=== PATIENT | female | born 1950 | race Caucasian/White ===

== ENCOUNTER → 2016-10-28 | Outpatient (REF) | payer MEDICARE, OTHER ==
[2016-10-28 11:42] LABS: ALBUMIN 3.9 GM/DL (3.2-5.2); ALBUMIN/GLOBULIN RATIO 1.44 (1.00-1.93); ALKALINE PHOSPHATASE 64 U/L (45-117); ALT/SGPT 36 U/L (12-78); ANION GAP 7 MEQ/L (8-16); AST/SGOT 19 U/L (15-37); BILIRUBIN,TOTAL 0.4 MG/DL (0.2-1.0); BLOOD UREA NITROGEN 19 MG/DL (7-18); CALCIUM LEVEL 9.3 MG/DL (8.8-10.2); CARBON DIOXIDE LEVEL 28 MEQ/L (21-32); CHLORIDE LEVEL 107 MEQ/L (98-107); CHOLESTEROL LEVEL 164 MG/DL (<200); CREATININE FOR GFR 0.87 MG/DL (0.55-1.02); FREE T4 0.94 NG/DL (0.76-1.46); GLOMERULAR FILTRATION RATE > 60.0 (>45); GLUCOSE, FASTING 98 MG/DL (80-110); POTASSIUM SERUM 4.5 MEQ/L (3.5-5.1); SODIUM LEVEL 142 MEQ/L (136-145); TOTAL PROTEIN 6.6 GM/DL (6.4-8.2); TRIGLYCERIDES LEVEL 75 MG/DL (<150)
== END ==
LOC: M SFHCCLAY 08:01
PROVIDERS: ATTEND Family Medicine
DX: E11.9 Type 2 diabetes mellitus without complications (principal); E03.9 Hypothyroidism, unspecified

== ENCOUNTER → 2016-11-01 | Outpatient (REF) | payer MEDICARE, OTHER | LOC: M SFHCCLAY 16:19 | PROVIDERS: ATTEND Family Medicine | DX: E03.9 Hypothyroidism, unspecified (principal); E11.9 Type 2 diabetes mellitus without complications ==

== ENCOUNTER → 2017-04-28 | Outpatient (REF) | payer MEDICARE, OTHER ==
[2017-04-28 12:52] LABS: ALBUMIN 3.9 GM/DL (3.2-5.2); ALBUMIN/GLOBULIN RATIO 1.26 (1.00-1.93); ALKALINE PHOSPHATASE 82 U/L (45-117); ALT/SGPT 34 U/L (12-78); ANION GAP 11 MEQ/L (8-16); AST/SGOT 19 U/L (15-37); BILIRUBIN,TOTAL 0.7 MG/DL (0.2-1.0); BLOOD UREA NITROGEN 26 MG/DL (7-18); CALCIUM LEVEL 9.3 MG/DL (8.8-10.2); CARBON DIOXIDE LEVEL 25 MEQ/L (21-32); CHLORIDE LEVEL 106 MEQ/L (98-107); CHOLESTEROL LEVEL 219 MG/DL (<200); CREATININE FOR GFR 0.92 MG/DL (0.55-1.02); GLOMERULAR FILTRATION RATE > 60.0 (>45); GLUCOSE, FASTING 85 MG/DL (80-110); POTASSIUM SERUM 4.7 MEQ/L (3.5-5.1); SODIUM LEVEL 142 MEQ/L (136-145); TRIGLYCERIDES LEVEL 174 MG/DL (<150)
== END ==
LOC: M SFHCCLAY 08:55
PROVIDERS: ATTEND Family Medicine
DX: E11.9 Type 2 diabetes mellitus without complications (principal); E03.9 Hypothyroidism, unspecified

== ENCOUNTER → 2017-05-08 | Outpatient (REF) | payer MEDICARE, OTHER | LOC: M SFHCCLAY 16:30 | PROVIDERS: ATTEND Family Medicine | DX: E11.9 Type 2 diabetes mellitus without complications (principal); Z23 Encounter for immunization | CPT/HCPCS: 82043; 90662; G0008; G0463 ==

== ENCOUNTER → 2017-11-07 | Outpatient (REF) | payer MEDICARE, OTHER ==
[2017-11-07 12:44] LABS: ALBUMIN 3.9 GM/DL (3.2-5.2); ALBUMIN/GLOBULIN RATIO 1.39 (1.00-1.93); ALKALINE PHOSPHATASE 78 U/L (45-117); ALT/SGPT 31 U/L (12-78); ANION GAP 5 MEQ/L (8-16); AST/SGOT 23 U/L (7-37); BILIRUBIN,TOTAL 0.6 MG/DL (0.2-1.0); BLOOD UREA NITROGEN 19 MG/DL (7-18); CALCIUM LEVEL 9.1 MG/DL (8.8-10.2); CARBON DIOXIDE LEVEL 27 MEQ/L (21-32); CHLORIDE LEVEL 111 MEQ/L (98-107); CHOLESTEROL LEVEL 190 MG/DL (<200); CHOLESTEROL RISK RATIO 2.676 (<5); CREATININE FOR GFR 0.93 MG/DL (0.55-1.30); FREE T4 0.87 NG/DL (0.76-1.46); GLOMERULAR FILTRATION RATE > 60.0 (>45); GLUCOSE, FASTING 90 MG/DL (70-100); HDL CHOLESTEROL 71 MG/DL (>40); LDL CHOLESTEROL 101.2 MG/DL (<100); NON-HDL-C 119 MG/DL; POTASSIUM SERUM 4.4 MEQ/L (3.5-5.1); SODIUM LEVEL 143 MEQ/L (136-145); TOTAL PROTEIN 6.7 GM/DL (6.4-8.2); TRIGLYCERIDES LEVEL 89 MG/DL (<150)
[2017-11-07 13:29] LABS: ESTIMATED AVERAGE GLUCOSE 108 MG/DL (60-110); HEMOGLOBIN A1c 5.4 %
== END ==
LOC: M SFHCCLAY 07:38
DX: E11.9 Type 2 diabetes mellitus without complications (principal); E03.9 Hypothyroidism, unspecified
CPT/HCPCS: 84443

== ENCOUNTER → 2017-11-09 | Outpatient (REF) | payer MEDICARE, BC ==
[2017-11-09 13:13] LABS: CREATININE, URINE 82.7 MG/DL; MALB URINE SIEMENS 6.2 MG/L; MAU/CREAT RATIO 7.4 MCG/MG (0.0-30.0)
== END ==
LOC: M SFHCCLAY 11:47
DX: E11.9 Type 2 diabetes mellitus without complications (principal)
CPT/HCPCS: 82043

== ENCOUNTER → 2017-11-09 | Outpatient (CLI) | payer MEDICARE, BC | LOC: M CLY 08:58 | DX: M16.12 Unilateral primary osteoarthritis, left hip (principal); M25.552 Pain in left hip | CPT/HCPCS: 73502; 82043 ==

== ENCOUNTER → 2017-11-23 | Outpatient (CLI) | payer MEDICARE, BC | LOC: M WHC 12:49 | DX: Z12.31 Encounter for screening mammogram for malignant neoplasm of breast (principal); N95.1 Menopausal and female climacteric states; M81.0 Age-related osteoporosis without current pathological fracture | CPT/HCPCS: 77067 ==

== ENCOUNTER → 2018-05-14 | Outpatient (REF) | payer MEDICARE, OTHER ==
[2018-05-14 12:08] LABS: ALBUMIN 3.9 GM/DL (3.2-5.2); ALBUMIN/GLOBULIN RATIO 1.39 (1.00-1.93); ALKALINE PHOSPHATASE 95 U/L (45-117); ALT/SGPT 28 U/L (12-78); ANION GAP 4 MEQ/L (8-16); AST/SGOT 18 U/L (7-37); BILIRUBIN,TOTAL 0.7 MG/DL (0.2-1.0); BLOOD UREA NITROGEN 18 MG/DL (7-18); CALCIUM LEVEL 9.3 MG/DL (8.8-10.2); CARBON DIOXIDE LEVEL 28 MEQ/L (21-32); CHLORIDE LEVEL 105 MEQ/L (98-107); CHOLESTEROL LEVEL 201 MG/DL (<200); CHOLESTEROL RISK RATIO 2.791 (<5); CREATININE FOR GFR 0.82 MG/DL (0.55-1.30); GLOMERULAR FILTRATION RATE > 60.0 (>45); GLUCOSE, FASTING 84 MG/DL (70-100); HDL CHOLESTEROL 72 MG/DL (>40); LDL CHOLESTEROL 111 MG/DL (<100); NON-HDL-C 129 MG/DL; POTASSIUM SERUM 4.8 MEQ/L (3.5-5.1); SODIUM LEVEL 137 MEQ/L (136-145); TOTAL PROTEIN 6.7 GM/DL (6.4-8.2); TRIGLYCERIDES LEVEL 91 MG/DL (<150)
[2018-05-14 13:05] LABS: ESTIMATED AVERAGE GLUCOSE 108 MG/DL (60-110); HEMOGLOBIN A1c 5.4 %
== END ==
LOC: M SFHCCLAY 08:00
DX: E78.2 Mixed hyperlipidemia (principal); E11.9 Type 2 diabetes mellitus without complications
CPT/HCPCS: 80053

== ENCOUNTER → 2018-11-06 | Outpatient (REF) | payer MEDICARE, OTHER ==
[2018-11-07 11:11] LABS: BASO % 0.3 % (0.0-1.0); EOS % 0.3 % (0.0-3.0); HEMATOCRIT 37.1 % (36.0-47.0); HEMOGLOBIN 12.1 g/dl (12.0-15.5); LYMPH # 0.6 10^3/uL (1.5-4.5); LYMPH % 4.5 % (24.0-44.0); MEAN CORPUSCULAR HEMOGLOBIN 31.3 pg (27.0-33.0); MEAN CORPUSCULAR HGB CONC 32.6 g/dl (32.0-36.5); MEAN CORPUSCULAR VOLUME 95.9 fl (80.0-96.0); MONO # 0.8 10^3/uL (0.0-0.8); MONO % 5.6 % (0.0-5.0); NEUTROPHILS # 12.2 10^3/uL (1.8-7.7); NEUTROPHILS % 88.9 % (36.0-66.0); PLATELET COUNT, AUTOMATED 176 10^3/uL (150-450); RED BLOOD COUNT 3.87 10^6/uL (4.00-5.40); WHITE BLOOD COUNT 13.8 10^3/uL (4.0-10.0)
[2018-11-07 11:27] LABS: ALBUMIN 3.4 GM/DL (3.2-5.2); BILIRUBIN,TOTAL 0.5 MG/DL (0.2-1.0); CALCIUM LEVEL 8.6 MG/DL (8.8-10.2); CREATININE FOR GFR 1.44 MG/DL (0.55-1.30); FREE T4 1.25 NG/DL (0.76-1.46); GLOMERULAR FILTRATION RATE 38.5 (>45); POTASSIUM SERUM 4.1 MEQ/L (3.5-5.1); THYROID STIMULATING HORMONE 0.888 uIU/ML (0.358-3.740); TOTAL PROTEIN 6.5 GM/DL (6.4-8.2)
[2018-11-07 11:42] LABS: HEMOGLOBIN A1c 5.1 %
== END ==
LOC: M SFHCCLAY 15:29
PROVIDERS: ATTEND Nurse Practitioner Family
DX: R55 Syncope and collapse (principal); R73.01 Impaired fasting glucose; E03.9 Hypothyroidism, unspecified
CPT/HCPCS: 80053; 83036; 84439; 84443; 85025; 87804; 93005; G0463

== ENCOUNTER → 2018-11-23 | Outpatient (REF) | payer MEDICARE, OTHER ==
[2018-11-23 11:26] LABS: BASO # 0.1 10^3/uL (0.0-0.2); BASO % 1.1 % (0.0-1.0); EOS # 0.1 10^3/uL (0.0-0.50); EOS % 2.4 % (0.0-3.0); HEMOGLOBIN 11.2 g/dl (12.0-15.5); LYMPH # 1.5 10^3/uL (1.5-4.5); LYMPH % 28.5 % (24.0-44.0); MEAN CORPUSCULAR HEMOGLOBIN 30.5 pg (27.0-33.0); MEAN CORPUSCULAR HGB CONC 31.1 g/dl (32.0-36.5); MEAN CORPUSCULAR VOLUME 98.1 fl (80.0-96.0); MONO # 0.4 10^3/uL (0.0-0.8); NEUTROPHILS # 3.3 10^3/uL (1.8-7.7); NEUTROPHILS % 60.8 % (36.0-66.0); PLATELET COUNT, AUTOMATED 317 10^3/uL (150-450); RED BLOOD COUNT 3.67 10^6/uL (4.00-5.40); WHITE BLOOD COUNT 5.4 10^3/uL (4.0-10.0)
[2018-11-23 12:07] LABS: CALCIUM LEVEL 9.2 MG/DL (8.8-10.2); GLOMERULAR FILTRATION RATE 58.7 (>45); POTASSIUM SERUM 4.8 MEQ/L (3.5-5.1); THYROID STIMULATING HORMONE 0.518 uIU/ML (0.358-3.740)
[2018-11-23 12:11] LABS: FOLATE 16.2 NG/ML (>5.4)
== END ==
LOC: M SFHCCLAY 08:39
PROVIDERS: ATTEND Family Medicine
DX: I10 Essential (primary) hypertension (principal); E03.9 Hypothyroidism, unspecified; D64.9 Anemia, unspecified

== ENCOUNTER → 2018-12-19 | Outpatient (CLI) | payer MEDICARE, BC ==
--- NOTE | 2018-12-19 15:58 | REPMRS ---
Patient History The patient states she has not had a clinical breast exam in over a year. Patient is postmenopausal. Family history of breast cancer under age 50 in sister. Took estrogen for 3 years. Digital Woman Screen Mammo: December 19, 2018 - Exam #: [id number] Bilateral CC and MLO view(s) were taken. Technologist: Eva Coates, Technologist Prior study comparison: November 23, 2017, digital woman screen mammo performed at [facility]. May 23, 2016, bilateral digital mammo screening bilat, performed at [facility]. May 21, 2015, bilateral digital mammo screening bilat, performed at [facility]. FINDINGS: There are scattered fibroglandular densities. There is a small stable nodular opacity in the right breast unchanged from multiple prior studies. There has been no change in the appearance of the mammogram from the prior studies. There is a mild amount of scattered fibroglandular density which is fairly symmetric. There is no interval development of dominant mass, architectural distortion, or clustered microcalcification suggestive of malignancy. 3-D tomosynthesis shows no additional findings. Assessment: BI-RADS/ACR category 2 mammogram. Benign Findings. Recommendation Routine screening mammogram of both breasts in 1 year (for women over age 40). This patient's Lifetime Breast Cancer RIsk is estimated at 13.5 %. This mammogram was interpreted with the aid of an FDA-approved computer-aided dectection system. Electronically Signed By: Trenton Mcnally MD 12/19/18 3438
== END ==
LOC: M WHC 10:45
PROVIDERS: ATTEND Family Medicine
DX: Z12.31 Encounter for screening mammogram for malignant neoplasm of breast (principal); Z78.0 Asymptomatic menopausal state; Z80.3 Family history of malignant neoplasm of breast; Z92.23 Personal history of estrogen therapy

== ENCOUNTER → 2019-05-13 | Outpatient (REF) | payer MEDICARE, OTHER ==
[2019-05-13 13:08] LABS: BASO % 0.5 % (0.0-1.0); EOS # 0.1 10^3/uL (0.0-0.5); EOS % 1.8 % (0.0-3.0); HEMATOCRIT 41.7 % (36.0-47.0); HEMOGLOBIN 12.8 g/dl (12.0-15.5); LYMPH # 1.2 10^3/uL (1.5-5.0); LYMPH % 20.9 % (24.0-44.0); MEAN CORPUSCULAR HGB CONC 30.7 g/dl (32.0-36.5); MEAN CORPUSCULAR VOLUME 97.7 fl (80.0-96.0); MONO # 0.4 10^3/uL (0.0-0.8); MONO % 6.7 % (0.0-5.0); NEUTROPHILS # 3.8 10^3/uL (1.5-8.5); NEUTROPHILS % 69.7 % (36.0-66.0); PLATELET COUNT, AUTOMATED 233 10^3/uL (150-450); RED BLOOD COUNT 4.27 10^6/uL (4.00-5.40); WHITE BLOOD COUNT 5.5 10^3/uL (4.0-10.0)
[2019-05-13 13:22] LABS: ALT/SGPT 27 U/L (12-78); BILIRUBIN,TOTAL 0.5 MG/DL (0.2-1.0); BLOOD UREA NITROGEN 20 MG/DL (7-18); CALCIUM LEVEL 9.5 MG/DL (8.8-10.2); CARBON DIOXIDE LEVEL 25 MEQ/L (21-32); CHLORIDE LEVEL 107 MEQ/L (98-107); CHOLESTEROL LEVEL 235 MG/DL (<200); CHOLESTEROL RISK RATIO 2.216 (<5); CREATININE FOR GFR 0.86 MG/DL (0.55-1.30); GLOMERULAR FILTRATION RATE > 60.0 (>45); GLUCOSE, FASTING 99 MG/DL (70-100); HDL CHOLESTEROL 106 MG/DL (>40); IRON (FE) 97 UG/DL (50-170); LDL CHOLESTEROL 120 MG/DL (<100); NON-HDL-C 129 MG/DL; POTASSIUM SERUM 4.3 MEQ/L (3.5-5.1); SODIUM LEVEL 141 MEQ/L (136-145); THYROID STIMULATING HORMONE 0.148 uIU/ML (0.358-3.740); TOTAL PROTEIN 6.8 GM/DL (6.4-8.2); TRIGLYCERIDES LEVEL 46 MG/DL (<150)
[2019-05-13 14:36] LABS: HEMOGLOBIN A1c 5.4 %
== END ==
LOC: M SFHCCLAY 08:25
PROVIDERS: ATTEND Family Medicine
DX: E78.2 Mixed hyperlipidemia (principal); E11.9 Type 2 diabetes mellitus without complications; D64.9 Anemia, unspecified; E03.9 Hypothyroidism, unspecified

== ENCOUNTER → 2019-11-20 | Outpatient (REF) | payer MEDICARE, OTHER ==
[2019-11-20 11:51] LABS: ALBUMIN 4.2 GM/DL (3.2-5.2); ALT/SGPT 35 U/L (12-78); BILIRUBIN,TOTAL 0.8 MG/DL (0.2-1.0); BLOOD UREA NITROGEN 23 MG/DL (7-18); CALCIUM LEVEL 9.7 MG/DL (8.8-10.2); CARBON DIOXIDE LEVEL 29 MEQ/L (21-32); CHLORIDE LEVEL 106 MEQ/L (98-107); CHOLESTEROL LEVEL 293 MG/DL (<200); CHOLESTEROL RISK RATIO 2.844 (<5); CREATININE FOR GFR 0.85 MG/DL (0.55-1.30); GLOMERULAR FILTRATION RATE > 60.0 (>45); GLUCOSE, FASTING 84 MG/DL (70-100); HDL CHOLESTEROL 103 MG/DL (>40); LDL CHOLESTEROL 173 MG/DL (<100); NON-HDL-C 190 MG/DL; POTASSIUM SERUM 4.6 MEQ/L (3.5-5.1); SODIUM LEVEL 140 MEQ/L (136-145); THYROID STIMULATING HORMONE 0.652 uIU/ML (0.358-3.740); TOTAL PROTEIN 6.9 GM/DL (6.4-8.2); TRIGLYCERIDES LEVEL 87 MG/DL (<150)
[2019-11-20 12:02] LABS: HEMOGLOBIN A1c 5.2 %
== END ==
LOC: M SFHCCLAY 08:18
PROVIDERS: ATTEND Family Medicine
DX: E78.2 Mixed hyperlipidemia (principal); R73.01 Impaired fasting glucose; E03.9 Hypothyroidism, unspecified

== ENCOUNTER → 2019-12-30 | Outpatient (CLI) | payer MEDICARE, BC ==
--- NOTE | 2019-12-31 09:00 | REPMRS ---
Patient History The patient states she has not had a clinical breast exam in over a year. Family history of breast cancer under age 50 in sister. Took estrogen for 3 years. Digital Woman Screen Mammo: December 30, 2019 - Exam #: [id number] Bilateral CC and MLO view(s) were taken. Technologist: iLsa Singleton, Technologist Prior study comparison: December 19, 2018, bilateral digital woman screen mammo performed at [facility]. November 23, 2017, digital woman screen mammo performed at [facility]. May 23, 2016, bilateral digital mammo screening bilat, performed at [facility]. FINDINGS: There are scattered fibroglandular densities. The Volpara volumetric breast density category is:B. There has been no change in the appearance of the mammogram from the prior studies. There is a mild amount of scattered fibroglandular density which is fairly symmetric. There is no interval development of dominant mass, architectural distortion, or grouped microcalcification suggestive of malignancy. 3-D tomosynthesis shows no additional findings. Assessment: BI-RADS/ACR category 1 mammogram. Negative Mammogram. Recommendation Routine screening mammogram of both breasts in 1 year (for women over age 40). This patient's Lifetime Breast Cancer Risk is estimated at 12.0 %. This mammogram was interpreted with the aid of an FDA-approved computer-aided dectection system. Electronically Signed By: Trenton Mcnally MD 12/31/19 0960
== END ==
LOC: M WHC 14:52
PROVIDERS: ATTEND Family Medicine
DX: Z12.31 Encounter for screening mammogram for malignant neoplasm of breast (principal); Z80.3 Family history of malignant neoplasm of breast

== ENCOUNTER → 2020-05-08 | Outpatient (REF) | payer MEDICARE, OTHER ==
[2020-05-08 12:03] LABS: BASO % 0.8 % (0.0-1.0); EOS # 0.2 10^3/uL (0.0-0.5); EOS % 3.2 % (0.0-3.0); HEMATOCRIT 44.5 % (36.0-47.0); HEMOGLOBIN 13.5 g/dl (12.0-15.5); LYMPH # 1.6 10^3/uL (1.5-5.0); LYMPH % 34.6 % (24.0-44.0); MEAN CORPUSCULAR HEMOGLOBIN 29.6 pg (27.0-33.0); MEAN CORPUSCULAR HGB CONC 30.3 g/dl (32.0-36.5); MEAN CORPUSCULAR VOLUME 97.6 fl (80.0-96.0); MONO # 0.4 10^3/uL (0.0-0.8); NEUTROPHILS # 2.5 10^3/uL (1.5-8.5); NEUTROPHILS % 53.2 % (36.0-66.0); PLATELET COUNT, AUTOMATED 236 10^3/uL (150-450); RED BLOOD COUNT 4.56 10^6/uL (4.00-5.40); WHITE BLOOD COUNT 4.7 10^3/uL (4.0-10.0)
[2020-05-08 12:44] LABS: ALBUMIN 4.2 GM/DL (3.2-5.2); ALT/SGPT 31 U/L (12-78); BILIRUBIN,TOTAL 0.8 MG/DL (0.2-1.0); BLOOD UREA NITROGEN 24 MG/DL (7-18); CALCIUM LEVEL 9.8 MG/DL (8.8-10.2); CARBON DIOXIDE LEVEL 26 MEQ/L (21-32); CHLORIDE LEVEL 107 MEQ/L (98-107); CHOLESTEROL LEVEL 302 MG/DL (<200); CHOLESTEROL RISK RATIO 2.475 (<5); CREATININE FOR GFR 0.82 MG/DL (0.55-1.30); GLOMERULAR FILTRATION RATE > 60.0 (>39); GLUCOSE, FASTING 84 MG/DL (70-100); HDL CHOLESTEROL 122 MG/DL (>40); IRON (FE) 114 UG/DL (50-170); LDL CHOLESTEROL 165 MG/DL (<100); NON-HDL-C 180 MG/DL; POTASSIUM SERUM 4.9 MEQ/L (3.5-5.1); SODIUM LEVEL 140 MEQ/L (136-145); TOTAL PROTEIN 7.3 GM/DL (6.4-8.2); TRIGLYCERIDES LEVEL 73 MG/DL (<150)
[2020-05-08 12:45] LABS: THYROID STIMULATING HORMONE 0.748 uIU/ML (0.358-3.740)
== END ==
LOC: M SFHCCLAY 08:13
PROVIDERS: ATTEND Family Medicine
DX: D64.9 Anemia, unspecified (principal); E78.2 Mixed hyperlipidemia; E11.9 Type 2 diabetes mellitus without complications; E03.9 Hypothyroidism, unspecified

== ENCOUNTER → 2020-08-14 | Outpatient (CLI) | payer MEDICARE, BC, OTHER ==
[~2020-08-14] MED LIST: CELE1CAP9 PO; FLUTISP NARES; IRBE150T7 PO; REST0.057 OU; SPIR100T3 PO; SYNT75TA PO
--- NOTE | 2020-08-15 12:26 | ECGEPIP ---
[facility] Test Date: 2020-08-14 Pat Name: KIP CONNELLY Department: Room: - Gender: Female Electronic Imager: RF : 1950 Requested By: SHANNAN Carroll Order Number: [id number] Reading MD: Shaheen Wolf Measurements Intervals [place] Rate: 59 P: 24 UT: 152 QRS: -15 QRSD: 104 T: 21 QT: 436 QTc: 431 Interpretive Statements Sinus bradycardia LA conduction disturbance Left axis deviation (measured axis is incorrect) INTRAVENTRICULAR CONDUCTION DELAY with somewhat low voltages slow precordial R wave progression and persistent S waves V5 and V6; body habitus versus pulmonary disease. No prior tracing for comparison. Clincal correlation advised Electronically Signed on 08-15-2020 12:26:02 EST by Shaheen Wolf
== END ==
LOC: M EKG 10:32
PROVIDERS: ATTEND Anesthesiology
DX: Z01.812 Encounter for preprocedural laboratory examination (principal); I10 Essential (primary) hypertension; Z20.822 Contact with and (suspected) exposure to COVID-19
CPT/HCPCS: 93005; U0003

== ENCOUNTER → 2020-08-14 | Outpatient (CLI) | payer MEDICARE, OTHER | LOC: M LABSMTC 10:00 | PROVIDERS: ATTEND Anesthesiology | DX: Z01.812 Encounter for preprocedural laboratory examination (principal); Z20.822 Contact with and (suspected) exposure to COVID-19 ==

== ENCOUNTER 2020-08-19 06:04 | Day surgery (SDC) | payer MEDICARE, BC, OTHER ==
[~2020-08-19] VITALS: Ht 157.5 cm; Wt 73.5 kg
[~2020-08-19 06:04] MED LIST changes: +LIDOCAINE 1% MDV 20ML VIAL SQ PRN; +LR 1,000 ML IV ONE
--- OUTSIDE RECORDS SUMMARY | 2020-08-19 06:08 | CCD ---
Author Author [facility] Organization [facility] Address Unknown Phone Unavailable Care Team Providers Care Carton Maker Name Role Phone Yuliya Mueller Unavailable PROBLEMS Type Condition ICD9-CM Code [id number] Code Onset Dates Condition S tatus SNOMED Code Notes Problem Iron deficiency anemia due to chronic blood loss D 50.0 Active 13769001 Problem Hypothyroidism, unspecified type E03.9 Active 09714080 Problem Diverticulosis of colon (without mention of hemorrhage) K57.30 Active 567937094 Problem Allergic rhinitis, unspecified allergic rhinitis type J30.9 Active 13563811 Problem Reflux esophagitis K21.0 Active 449313805 Problem Essential hypertension I10 Active 73361355 Problem Menopausal and female climacteric states N95.1 Active 749874752 Problem Primary osteoarthritis of left hip M16.12 Activ e 010043703600928 Problem Vaginal prolapse N81.10 Active 489203701 Problem Morbid obesity due to excess calories E66.01 Ac tive 238123093 Problem Uterine prolapse N81.4 Active 66100886 Problem Mixed hyperlipidemia E78.2 Active 696983050 Problem Status post total hip replacement, left Z96.642 Active 596445717678 Problem Controlled type 2 diabetes mellitus without complication E11.9 Active 390054742 Problem Gastro-esophageal reflux disease without esophagitis K21.9 Active 267372644 Problem Pelvic organ prolapse quantification stage 3 cystocele N81.10 Active 657697093 ALLERGIES Allergen (clinical drug ingredient) Drug/Non Drug Allergy do cumented on EMR Reaction Allergy Type Onset Date Status Monistat 1 Itching Drug Allergy Active penicillamine Penicillamine([facility] Code:[address]-47) Rash Drug A llergy Active tetracycline Tetracycline HCl([facility] Code:[address]-11) Stomach pain Drug Allergy Active scopolamine Scopolamine([facility] Code:[address]-05) Contact dermatitis Drug Allergy Active erythromycin Erythromycin([facility] Code:[address]-36) STomach brit n,itching Drug Allergy Active Sulfacet-R Anaphylaxis Drug Allergy Active ENCOUNTERS from 1950 to 2020-07-27 Encounter Location Date Provider Diagnosis [facility] [place] [address] Jun, [facility] Pelvic organ prolaps e quantification stage 3 cystocele N81.10 IMMUNIZATIONS Vaccine Route Administration Date Status Pneumococcal Adult 0.5mL (Pneumovax 23) IM Intramuscular May 16, 2019 Administered Influenza (18 yrs & older) Flublok IM Intramuscular Apr 27, 2020 Administered Influenza (High Dose 65 & up) IM Intramuscular May 08, 2017 A dministered Influenza (18 yrs & older) Flublok IM Intramuscular May 17, 2018 Administered Influenza (18 yrs & older) Flublok IM Intramuscular May 16, 2019 Administered Influenza (6mo & up) Fluzone IM Intramuscular May 19, 2010 Ad ministered Influenza (High Dose 65 & up) IM Intramuscular May 02, 2016 A dministered Influenza (High Dose 65 & up) IM Intramuscular May 22, 2015 A dministered Zoster 0.65mL (Zostavax) SC Subcutaneous Aug 03, 2011 Adminis tered Zoster 50mcg/0.5mL (Shingrix) Unknown Aug 23, 2019 Ad ministered Pneumococcal 0.5mL (Prevnar 13) IM Intramuscular Feb 18, 2015 Administered Influenza (6mo & up) Fluzone IM Apr 17, 2013 Adm inistered Influenza (6mo & up) Fluzone IM Intramuscular Jun 28, 2012 Ad ministered Influenza (6mo & up) Fluzone IM Intramuscular May 30, 2011 Ad ministered SOCIAL HISTORY Tobacco Use: Social History Observation Description Date Details (start date - stop date) Never Smoker Sex Assigned At : Social History Observation Description Sex Assigned At Unknown Audit Question Answer Notes Total Score: 3 Interpretation: Alcohol Education Drug and Alcohol Question Answer Notes Total Score: 0 Interpretation: No problems reported BMI Care Goal Follow-Up Question Answer Notes Above Normal BMI Follow-Up Giving encouragement to exercise Tobacco Use: Question Answer Notes Are you a: never smoker REASON FOR REFERRAL No Information VITAL SIGNS Weight 163 lbs Jun, Height 62.5 in Jun, BMI 29.33 kg/m2 Jun, Blood pressure systolic 148 mm Hg Jun, Blood pressure diastolic 76 mm Hg Jun, MEDICATIONS Medication SIG (Take, Route, Frequency, Duration) Notes Start Da te End Date Status Avapro 150 MG 1 tablet Orally Once a day Active Align - Orally once a day Not-Ta malena FiberCon 625 MG 2 tablet as needed for constipation Orally daily Active Acetaminophen 500 MG 1 tablet as needed Orally every 6 hrs Jan, Active Synthroid 75 MCG 1 tablet Orally Once a day for 90 days Active Celecoxib 200 MG 1 capsule with food Orally Once a day for 90 day(s) Active Restasis 0.05 % 1 into affected eye Ophthalmic Twice a day Active Avapro 150 MG 1 tablet Orally Once a day for 90 day(s) Active Celecoxib 200 MG TAKE 1 CAPSULE DAILY WITH FOOD for 90 Active Aldactone 100 MG 1 tablet with food Orally Once a day for 90 days Active Flonase 50 MCG/ACT 2 sprays Nasally daily for 90 day(s) Active PROCEDURES No Information RESULTS No Results REASON FOR VISIT VAGINAL PROLAPSE MEDICAL (GENERAL) HISTORY Type Description Date Medical History HTN Medical History Hyperlipidemia Medical History Impaired fasting glucose- diet controlle d Medical History GERD Medical History Hx of GI bleed Medical History Hypothyroid Surgical History Appendectomy 1972 Surgical History Tonsilectomy 1968 Surgical History Gall bladder removal 2001 Surgical History Rt foot posterior tibial tendon repair x 2 1998 Surgical History D&C 2006 Surgical History Umbilical hernia repair- Dr. Bear Eid 12/2015 Surgical History Colonoscopy/ EGD- Dr. Bear Eid 2016 Surgical History Left Hip Replacement 01/21/2019 Surgical History umbilical hernia repair 12/2015 Surgical History rotator cuff 2007 Hospitalization History GI Bleed 07/2010 Hospitalization History [id number] 01/17/18 Hospitalization History [place]- Sepsis/UTI 11/2018 Goals Section No Information Health Concerns No Information MEDICAL EQUIPMENT No Information MENTAL STATUS No Information FUNCTIONAL STATUS No Information ASSESSMENTS Encounter Date Diagnosis Assessment Notes Treatment Notes Treatm ent Clinical Notes Jun, Pelvic organ prolapse quanti fication stage 3 cystocele (ICD-10 - N81.10) discussed treatment options to include pessary, pelvic floor physical therapy with surgical repair. After discussion patient desires surgical repair her cystocele she will follow-up for surgical discussion PLAN OF TREATMENT Treatment Notes Assessment Notes Clinical Notes Pelvic organ prolapse quantification stage 3 cystocele discussed treatment options to include pessary, pelvic floor physical therapy with surgical repair. After discussion patient desires surgical repair her cystocele she will follow- up for surgical discussion Next Appt Details Provider Name:Yuliya Mueller, 2020-08-19 0 7:30:00 AM, [address] [place] [address], [phone], Provider Name:Everette Hampton, 2020-08-19 07:30:00 AM, [address] [place] [address], [phone], Provider Name:Yuliya Mueller, 2020-09-09 0 1:20:00 PM, [address] [place] [address], [phone], Provider Name:Yuliya Mueller, 2020-09-28 0 1:20:00 PM, [address] [place] [address], [phone], Provider Name:Peter More, 09:30:00 AM, [address] [place] [address], [phone], Insurance Providers Payer Name Payer Address Payer Phone Insured Name Patient Relati onship to Insured Coverage Start Date Coverage End Date MEDICARE Part A and B [address] [facility] [address] [phone] KIP BASS [facility] [address] [facility] [id number] [phone] KIP BASS self
--- OUTSIDE RECORDS SUMMARY | 2020-08-19 06:08 | CCD ---
Author Author [facility] Organization [facility] Address Unknown Phone Unavailable Care Team Providers Care Furnace Door Tender Name Role Phone Peter More Unavailable PROBLEMS Type Condition ICD9-CM Code [id number] Code Onset Dates Condition S tatus SNOMED Code Notes Problem Diverticulosis of colon (without mention of hemorrhage) K57.30 Active 428348370 Problem Iron deficiency anemia due to chronic blood loss D 50.0 Active 84200925 Problem Reflux esophagitis K21.0 Active 613125406 Problem Hypothyroidism, unspecified type E03.9 Active 68744236 Problem Morbid obesity due to excess calories E66.01 Ac tive 336388271 Problem Essential hypertension I10 Active 43553439 Problem Menopausal and female climacteric states N95.1 Active 387804224 Problem Vaginal prolapse N81.10 Active 245567011 Problem Mixed hyperlipidemia E78.2 Active 903512767 Problem Uterine prolapse N81.4 Active 90557699 Problem Allergic rhinitis, unspecified allergic rhinitis type J30.9 Active 42052047 Problem Primary osteoarthritis of left hip M16.12 Activ e 567698721135223 Problem Status post total hip replacement, left Z96.642 Active 099464129070 Problem Controlled type 2 diabetes mellitus without complication E11.9 Active 235398051 Problem Gastro-esophageal reflux disease without esophagitis K21.9 Active 746064197 ALLERGIES Allergen (clinical drug ingredient) Drug/Non Drug Allergy do cumented on EMR Reaction Allergy Type Onset Date Status Monistat 1 Itching Drug Allergy Active penicillamine Penicillamine([facility] Code:[address]-08) Rash Drug A llergy Active tetracycline Tetracycline HCl([facility] Code:[address]-59) Stomach pain Drug Allergy Active scopolamine Scopolamine([facility] Code:[address]-30) Contact dermatitis Drug Allergy Active erythromycin Erythromycin([facility] Code:[address]-76) STomach brit n,itching Drug Allergy Active Sulfacet-R Anaphylaxis Drug Allergy Active ENCOUNTERS from 1950 to 2020-07-23 Encounter Location Date Provider Diagnosis [facility] [address] [place] [address] 14 Jul Peter More Vaginal prolapse N81.10 ; Uterine prolap se N81.4 ; Pre-op evaluation Z01.818 ; Essential hypertension I10 ; Mixed hyperlipidemia E78.2 ; Impaired fasting glucose R73.01 ; Hypothyroidism, unspecified type E03.9 ; Gastro- esophageal reflux disease without esophagitis K21.9 ; Hx of gastric ulcer Z87.19 ; Primary osteoarthritis of left hip M16.12 ; Status post total hip replacement, left Z96.642 and Allergic rhinitis, unspecified allergic rhinitis type J30.9 IMMUNIZATIONS Vaccine Route Administration Date Status Influenza (18 yrs & older) Flublok IM Intramuscular May 16, 2019 Administered Influenza (18 yrs & older) Flublok IM Intramuscular Apr 27, 2020 Administered Influenza (High Dose 65 & up) IM Intramuscular May 02, 2016 A dministered Influenza (High Dose 65 & up) IM Intramuscular May 08, 2017 A dministered Influenza (18 yrs & older) Flublok IM Intramuscular May 17, 2018 Administered Influenza (6mo & up) Fluzone IM Intramuscular May 19, 2010 Ad ministered Influenza (High Dose 65 & up) IM Intramuscular May 22, 2015 A dministered Zoster 0.65mL (Zostavax) SC Subcutaneous Aug 03, 2011 Adminis tered Zoster 50mcg/0.5mL (Shingrix) Unknown Aug 23, 2019 Ad ministered Pneumococcal Adult 0.5mL (Pneumovax 23) IM Intramuscular May 16, 2019 Administered Pneumococcal 0.5mL (Prevnar 13) IM Intramuscular Feb [...] FOR REFERRAL No Information VITAL SIGNS Weight 160.8 lbs Jul, Height 62.5 in Jul, BMI 28.94 kg/m2 Jul, Heart Rate 77 /min Jul, Respiratory Rate 16 /min Jul, Temperature 98.2 degrees Fahrenheit Jul, Oximetry 98ra Jul, Blood pressure systolic 148 mm Hg Jul, Blood pressure diastolic 81 mm Hg Jul, MEDICATIONS Medication SIG (Take, Route, Frequency, Duration) [...] Information RESULTS No Results REASON FOR VISIT Patient here for pre op evaluation MEDICAL (GENERAL) HISTORY Type Description Date Medical History HTN Medical History Hyperlipidemia Medical History Impaired fasting glucose- diet controlle d Medical History GERD Medical History Hx of GI bleed Medical History Hypothyroid Surgical History Appendectomy 1972 Surgical History Tonsilectomy 1968 Surgical History Gall bladder removal 2001 Surgical History Rt foot posterior tibial tendon repair x 2 1997 Surgical History D&C 2006 Surgical History Umbilical hernia repair- Dr. Bear Eid 12/2015 Surgical History Colonoscopy/ EGD- Dr. Bear Eid 2016 Surgical History Left Hip Replacement 01/21/2019 Surgical History umbilical hernia repair 12/2015 Surgical History rotator cuff 2006 Hospitalization History GI Bleed 07/2010 Hospitalization History [id number] 01/17/18 Hospitalization History [place]- Sepsis/UTI 11/2018 Goals Section No Information Health Concerns No Information MEDICAL EQUIPMENT No Information MENTAL STATUS No Information FUNCTIONAL STATUS No Information ASSESSMENTS Encounter Date Diagnosis Assessment Notes Treatment Notes Treatm ent Clinical Notes Jul, Vaginal prolapse (ICD-10 - N81.10) Cont f/u with Dr Mueller. Jul, Uterine prolapse (ICD-10 - N81.4) Cont with Dr Mueller. Jul, Pre-op evaluation (ICD-10 - Z01.818) At this time she is medically stable and most recent labs were all quite good. I feel she is at low risk for complications and may proceed with surgery as scheduled. Pt is aware and agreeable. 14 Jul, 2020 Essential hypertension (ICD-10 - I10) Well controlled, no changes recommended. Jul, Mixed hyperlipidemia (ICD-10 - E78.2) Well controlled, no changes recommended and will cont without medications. Jul, Impaired fasting glucose (ICD-10 - R73.01) Cont to monitor every 6-12 months. Jul, Hypothyroidism, unspecified type (ICD-10 - E03.9 ) Well controlled, no changes recommended. Jul, Gastro-esophageal reflux dis ease without esophagitis (ICD-10 - K21.9) Currently stable. Jul, Hx of gastric ulcer (ICD-10 - Z87.19) Jul, Primary osteoarthritis of left hip (ICD-10 - M16 .12) Cont with ortho. Jul, Status post total hip replacement, left (ICD-10 - Z96.642) Jul, Allergic rhinitis, unspecifi ed allergic rhinitis type (ICD-10 - J30.9) Currently stable. PLAN OF TREATMENT Treatment Notes Assessment Notes Clinical Notes Vaginal prolapse Cont f/u with Dr Henry fernandez. Uterine prolapse Cont with Dr Mueller. Pre-op evaluation At this time she is medically stable and most recent labs were all quite good. I feel she is at low risk for complications and may proceed with surgery as scheduled. Pt is aware and agreeable. Essential hypertension Well controlled, no changes recommended. Mixed hyperlipidemia Well controlled, no changes recommended and will cont without medications. Impaired fasting glucose Cont to monitor every 6-12 months. Hypothyroidism, unspecified type Well co ntrolled, no changes recommended. Gastro-esophageal reflux disease without esophagitis Currently stable. Primary osteoarthritis of left hip Cont with ortho. Allergic rhinitis, unspecified allergic rhinitis type Currently stable. Next Appt Details as scheduled Reason: Provider Name:Yuliya Mueller, 2020-08-19 0 7:30:00 AM, [address] [place] [address], [phone], Provider Name:Everette Hampton, 2020-08-19 07:30:00 AM, [address] [place] [address], [phone], Provider Name:Yuliya Mueller 2020-09-09 0 1:20:00 PM, [address] [place] [address], [phone], Provider Name:Yuliya Mueller, 2020-09-28 0 1:20:00 PM, [address] [place] [address], [phone], Provider Name:Peter More, 09:30:00 AM, [address] [place] [address], [phone], Insurance Providers Payer Name Payer Address Payer Phone Insured Name Patient Relati onship to Insured Coverage Start Date Coverage End Date MEDICARE Part A and B [address] [facility] [phone] KIP BASS [facility] [address] [facility] [id number] KIP BASS self
--- OUTSIDE RECORDS SUMMARY | 2020-08-19 06:08 | CCD ---
Author Author Herber Thornton MD [facility] Organization Herber Thornton MD [facility] Address [address] [place] [phone] Phone Care Team Providers Care Valuation Manager Name Role Phone Hillary MIRANDA, Herber PATRICIA Unavailable [phone] Peter More DO Unavailable [phone] Everette Quesada DO PP [phone] Reason for Referral No Reason for Referral Recorded Problems Includes: Active, inactive, and resolved Problems All Visits Onset Date - Time Resolved Date - Time Provider Co ndition Status Abnormal Glucose 06/17/2019 - 12:00AM Herber mariscal MD, FACS Active Essential Hypertension 05/12/2015 - 12:00AM Herber Prater MD, FACS Active Vitreous Disorders Degeneration 05/12/2015 - 12:00AM Herber Thornton MD, FACS Active Dermatochalasis Both Eyelids 07/15/2013 - 12:00AM Herber Thornton MD, FACS Inactive Note: Unchanged Diabetes Mellitus Type 2 - Uncomplicated, Controlled 07/15/2013 - 12:00AM Herber Thornton MD, FACS Inactive Note: Unchanged Retinopathy Hypertensive Both Eyes 07/15/2013 - 12:00AM Herber Thornton MD, FACS Active Note: Unchanged Dry Eye Syndrome Both Eyes 07/15/2013 - 12:00AM Herber Thornton MD, FACS Active Note: Unchanged Vitreous Floaters Both Eyes 07/15/2013 - 12:00AM Herber Thornton MD, FACS Inactive Note: Unchanged Plan of Treatment No Plan of Treatment Recorded Assessments Includes: Assessments for all patient encounters Findings Encounter Date Abnormal glucose 1 Year Follow-Up with Herber grimes MD, FACS 06/22/2020 Dry eye syndrome of both eyes 1 Year Follow-Up with Jone Thornton MD, FACS 06/22/2020 Essential hypertension 1 Year Follow-Up with Herber Olivares MD, FACS 06/22/2020 Hypertensive retinopathy of both eyes 1 Year Follow-Up with Herber Thornton MD, FACS 06/22/2020 Vitreous degeneration 1 Year Follow-Up with Herber mariscal MD, FACS 06/22/2020 Abnormal glucose 1 Year Follow-Up with Herber grimes MD, FACS 06/17/2019 Dry eye syndrome of both eyes 1 Year Follow-Up with Jone Thornton MD, FACS 06/17/2019 Essential (primary) hypertension 1 Year Follow-Up with Herber Thornton MD, FACS 06/17/2019 Hypertensive retinopathy of both eyes 1 Year Follow-Up with Herber Thornton MD, FACS 06/17/2019 Dry eye syndrome of both eyes 1 Year Follow-Up with Macario Nina DO 06/27/2018 Essential hypertension 1 Year Follow-Up with Macario Goldman in DO 06/27/2018 Hypermetropia 1 Year Follow-Up with Macario Nina 06/27/2018 Hypertensive retinopathy of both eyes 1 Year Follow-Up with Macario Nina 06/27/2018 Type 2 diabetes mellitus - uncomplicated, controlled 1 Year Follow-Up with Macario Nina 06/27/2018 Dry eye syndrome of both eyes 1 Year Follow-Up with Jone Thortnon MD, FACS 06/22/2017 Essential (primary) hypertension 1 Year Follow-Up with Herber Thornton MD, FACS 06/22/2017 Hypertensive retinopathy of both eyes 1 Year Follow-Up with Herber Thornton MD, FACS 06/22/2017 Type 2 diabetes mellitus - uncomplicated, controlled 1 Year Follow-Up with Herber Thornton MD, FACS 06/22/2017 Dry eye syndrome of both eyes 1 Year Follow-Up with Jone Thornton MD, FACS 06/13/2016 Essential (primary) hypertension 1 Year Follow-Up with Herber Thornton MD, FACS 06/13/2016 Hypertensive retinopathy of both eyes 1 Year Follow-Up with Herber Thornton MD, FACS 06/13/2016 Type 2 diabetes mellitus without complication 1 Year F ollow-Up with Herber Thornton MD, FACS 06/13/2016 Dry eye syndrome of both eyes 9 Month Follow-Up with Diaz Thornton MD, FACS 04/22/2015 Essential (primary) hypertension 9 Month Follow-Up wit h Herber Thornton MD, FACS 04/22/2015 Hypertensive retinopathy of both eyes 9 Month Follow-U p with Herber Thornton MD, FACS 04/22/2015 Type 2 diabetes mellitus - uncomplicated, controlled 9 Month Follow-Up with Herber Thornton MD, FACS 04/22/2015 Dermatochalasis of both eyes 1 Year Follow-Up with Herber Thornton MD, FACS 07/16/2014 Dry eye syndrome of both eyes 1 Year Follow-Up with Jone Thornton MD, FACS 07/16/2014 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 1 Year Fo llow-Up with Herber Thornton MD, FACS 07/16/2014 Hypertensive retinopathy of both eyes 1 Year Follow-Up with Herber Thornton MD, FACS 07/16/2014 No diabetic macular edema 1 Year Follow-Up with Herber Morgan MD, FACS 07/16/2014 No rubeosis iridis 1 Year Follow-Up with Herber grimes MD, FACS 07/16/2014 Type 2 diabetes mellitus - uncomplicated, controlled 1 Year Follow-Up with Herber Thornton MD, FACS 07/16/2014 Vitreous floaters in both eyes 1 Year Follow-Up with Diaz Thornton MD, FACS 07/16/2014 Dermatochalasis of both eyes NEW PATIENT with Herber Calvert MD, FACS 07/15/2013 Dry eye syndrome of both eyes NEW PATIENT with Herber Espinoza MD, FACS 07/15/2013 Hypertensive retinopathy of both eyes NEW PATIENT with Herber Thornton MD, FACS 07/15/2013 No diabetic macular edema NEW PATIENT with Herber sales MD, FACS 07/15/2013 No diabetic retinopathy NEW PATIENT with Herber Tohrnton MD, FACS 07/15/2013 No rubeosis iridis of both eyes NEW PATIENT with Herber Salas MD, FACS 07/15/2013 Type 2 diabetes mellitus - uncomplicated, controlled N EW PATIENT with Herber Thornton MD, FACS 07/15/2013 Vitreous floaters in both eyes NEW PATIENT with Herber Morgan MD, FACS 07/15/2013 Instructions Instructions not supported for this document typeNo Instructions Recorded Medical Equipment - Implanted Devices Includes: Current and historical DevicesNo Medical Equipment Recorded Medications Includes: Current and historical Medications Current Medications (continue as prescribed) Restasis 0.05% Ophthalmic Emulsion 12/14/2017 Provi verena: Herber Thornton MD, FACS Diagnosis: Dry eye syndrome of bilateral lacrimal glands One drop twice a day in both eyes Synthroid 75 MCG OR TABS 07/16/2014 Provider: Diagnosis: Avapro 150 MG OR TABS 07/15/2013 Provider: Diagnosis: Aldactone 100 MG OR TABS 07/15/2013 Provider: Diagnosis: Past Medications on file RaNITidine HCl 150MG Oral Capsule 06/22/2017 - 06/22/2020 Pr ovider: Diagnosis: Restasis 0.05% Ophthalmic Emulsion 07/15/2016 - 12/14/2017 P rovider: Herber Thornton MD, FACS Diagnosis: Dry eye syndrome of bilateral lacrimal glands One drop twice a day in both eyes Restasis 0.05 % Emulsion 04/22/2015 - 07/15/2016 Provider: Herber Thornton MD, FACS Diagnosis: Dry eye syndrome of bilateral lacrimal glands One drop twice a day in both eyes Restasis 0.05% OP EMUL 07/16/2014 - 04/22/2015 Provider: Herber Thornton MD, FACS Diagnosis: Tear Film Insuffic N OS Simvastatin 40 MG OR TABS 07/16/2014 - 06/17/2019 Provider: Diagnosis: Protonix 40 MG OR TBEC 07/15/2013 - 06/22/2017 Provider: Diagnosis: Vagifem 10 MCG VA TABS 07/15/2013 - 06/22/2017 Provider: Diagnosis: 3x a week metFORMIN HCl 500 MG TABS 07/15/2013 - 04/22/2015 Provider: Diagnosis: Simvastatin 80 MG OR TABS 07/15/2013 - 07/16/2014 Provider: Diagnosis: Synthroid 125 MCG OR TABS 07/15/2013 - 07/16/2014 Provider: Diagnosis: Medications Administered Includes: Administered Medications in patient's chartNo Administered Medications Recorded Vital Signs Includes: Vital Signs from 06/22/2019 through 06/22/2020No Vital Signs Recorded For Specified Dates Results Includes: Results from 06/22/2019 through 06/22/2020No Results Recorded For Specified Dates History of Present Illness History of Present Illness not supported for this document typeNo History of Present Illness Recorded Social History Description Last Updated No tobacco use 06/22/2020 Not using drugs 06/22/2020 Smoking status : Never smoker 06/22/2020 Alcohol 1- 4 times weekly 06/17/2019 Alcohol use - occasional 07/16/2014 Never smoked 07/15/2013 Procedures and Surgical History Includes: Procedures from 06/22/2019 through 06/22/2020 Procedures Code Diagnosis Performing Provider Service Location Service Date Intermediate Eye Exam Established Patient [address] Other abnormal glucose, Hypertensive retinopathy, bilateral, Essential (primary) hypertension, Dry eye syndrome of bilateral lacrimal glands Herber Thornton MD, FACS 06/22/2020 Surgical History Last Updated Surgical / procedural history : Hernia - 1952, Appendectomy - 1971, T+ A - 1966, R. Foot fusion - 1997, D+C - 200505/08/2015 Medical History Includes: Medical History in patient's chart Description Last Updated History of the retina was abnormal 06/17/2019 06/22/20 20 No recent change in medical history 06/22/2020 Reported medical history : Menopause, Ul cerative colitis, Left Hip Replacement 2018, PreDiabetic (A1c: 5.1) 06/17/2019 Essential hypertension 05/12/2015 History of type 2 diabetes mellitus Dx: 2004, A1C: 5.[address] Quesada , FBS: doesn't check 04/22/2015 History of fundoscopic exam through dilated pupils was performed 07/16/2014 04/22/2015 History of arthritis 07/16/2014 History of hypertension 07/15/2013 Currently wearing eyeglasses 07/15/2013 History of hypothyroidism 07/15/2013 History of hyperlipidemia 07/15/2013 Family History Includes: Family History in patient's chart Description Last Updated Daughter's history of family history of cancer 019 Fraternal history of thyroid disorder 06/17/2019 Fraternal history of hypertension 04/22/2015 Sororal history of hypertension 04/22/2015 Fraternal history of arthritis 04/22/2015 Paternal history of stroke/cerebrovascular accident Sororal history of arthritis 04/22/2015 Sororal history of diabetes mellitus 04/22/2015 Sororal history of family history of cancer 04/22/2015 Sororal history of glaucoma 04/22/2015 Sororal history of thyroid disorder 04/22/2015 Diabetes mellitus - Sibling 07/16/2014 Glaucoma - Sibling 07/16/2014 Hypertension - Sibling 07/16/2014 Thyroid disorder - Sibling 07/16/2014 Arthritis - Sibling 07/16/2014 Cataract - Grandparent 07/16/2014 Macular degeneration - Grandparent 07/16/2014 Paternal history of stroke syndrome 07/16/2014 Paternal history of thyroid disorder 07/16/2014 Paternal history of heart disease 07/16/2014 Paternal history of hypertension 07/16/2014 Paternal history of macular degeneration 07/16/2014 Maternal history of macular degeneration 07/16/2014 Maternal history of arthritis 07/16/2014 Maternal history of cataract 07/16/2014 Paternal history of arthritis 07/16/2014 Paternal history of cataract 07/16/2014 Review of Systems Review of Systems not supported for this document typeNo Review of Systems Recorded Mental Status Mental Status not supported for this document type Description Oriented to time, place, and person Functional Status Functional Status not supported for this document typeNo Functional Status Recorded Physical Exam Physical Exam not supported for this document typeNo Physical Exam Recorded Immunizations Includes: Immunizations in patient's chartNo Immunizations Recorded Allergies Includes: Active, inactive, and resolved Allergies Substance Type Reaction Onset Date - Time Resolved Date - Ti me Status Tetracyclines & Related Allergy 07/15/2013 - 12:00AM Active Sulfa Antibiotics Allergy 07/15/2013 - 12:00AM Active Penicillins Allergy 07/15/2013 - 12:00AM Act alise Macrolides and Ketolides Allergy 07/15/2013 - 12:00AM Active Bandaging Tape Allergy 07/15/2013 - 12:00AM Active Encounters Includes: Encounters from 06/22/2019 through 06/22/2020 Encounter Provider Location Date Check-In Time Check-Out Time D iagnosis 1 Year Follow-Up Herber Thornton MD, FACS [facility] 06/22/2020 8:57AM 06/17/2019 11:59PM Abnormal Glucose, Dr y Eye Syndrome Both Eyes, Essential Hypertension, Retinopathy Hypertensive Both Eyes, Vitreous Disorders Degeneration Insurance Includes: Active Insurance Policies Plan Name Member ID Group # Subscriber Relationship Effective Da sreekanth 1 - Medicare Part B of [place] ([facility]) [id number] Susan Comer 12/08/2014 - Unknown 2 - [employer] [facility] [employer] ([place]) - [employer] [id number] Susan Bass Self Advance Directives Includes: Current Advance DirectivesNo Advance Directives Recorded Health Concerns Includes: Active Health ConcernsNo Active Health Concerns Recorded Goals Includes: Active GoalsNo Active Goals Recorded Interventions Includes: Interventions for active GoalsNo Interventions Recorded Evaluations & Outcomes Includes: Evaluations & Outcomes for active GoalsNo Outcomes Recorded
--- OUTSIDE RECORDS SUMMARY | 2020-08-19 06:08 | CCD ---
Author Author [facility] Organization [facility] Address Unknown Phone Unavailable Care Team Providers Care Manager Deli Name Role Phone Yuliya Mueller Unavailable PROBLEMS Type Condition ICD9-CM Code [id number] Code Onset Dates Condition S tatus SNOMED Code Notes Problem Iron deficiency anemia due to chronic blood loss D 50.0 Active 32789156 Problem Hypothyroidism, unspecified type E03.9 Active 31681710 Problem Diverticulosis of colon (without mention of hemorrhage) K57.30 Active 912446287 Problem Allergic rhinitis, unspecified allergic rhinitis type J30.9 Active 93323042 Problem Reflux esophagitis K21.0 Active 221742912 Problem Essential hypertension I10 Active 70926531 Problem Menopausal and female climacteric states N95.1 Active 225371504 Problem Primary osteoarthritis of left hip M16.12 Activ e 798787503154115 Problem Vaginal prolapse N81.10 Active 076129661 Problem Morbid obesity due to excess calories E66.01 Ac tive 028636093 Problem Uterine prolapse N81.4 Active 21902053 Problem Mixed hyperlipidemia E78.2 Active 346440254 Problem Status post total hip replacement, left Z96.642 Active 268943276305 Problem Controlled type 2 diabetes mellitus without complication E11.9 Active 979821439 Problem Gastro-esophageal reflux disease without esophagitis K21.9 Active 700204345 Problem Pelvic organ prolapse quantification stage 3 cystocele N81.10 Active 773765312 ALLERGIES Allergen (clinical drug ingredient) Drug/Non Drug Allergy do cumented on EMR Reaction Allergy Type Onset Date Status Monistat 1 Itching Drug Allergy Active penicillamine Penicillamine([facility] Code:[address]-68) Rash Drug A llergy Active tetracycline Tetracycline HCl([facility] Code:[address]-16) Stomach pain Drug Allergy Active scopolamine Scopolamine([facility] Code:[address]-72) Contact dermatitis Drug Allergy Active erythromycin Erythromycin([facility] Code:[address]-22) STomach brit n,itching Drug Allergy Active Sulfacet-R Anaphylaxis Drug Allergy Active ENCOUNTERS from 1950 to 2020-08-02 Encounter Location Date Provider Diagnosis [facility] [address] [place] [phone] 14 Jul, 2020 [facility] Vaginal prolapse N81 .10 IMMUNIZATIONS Vaccine Route Administration Date Status Influenza (18 yrs & older) Flublok IM Intramuscular May 16, 2019 Administered Influenza (18 yrs & older) Flublok IM Intramuscular Apr 27, 2020 Administered Influenza (High Dose 65 & up) IM Intramuscular May 08, 2017 A dministered Zoster 50mcg/0.5mL (Shingrix) Unknown Aug 23, 2019 Ad ministered Influenza (18 yrs & older) Flublok IM Intramuscular May 17, 2018 Administered Influenza (6mo & up) Fluzone IM Intramuscular May 19, 2010 Ad ministered Influenza (High Dose 65 & up) IM Intramuscular May 02, 2016 A dministered Influenza (High Dose 65 & up) IM Intramuscular May 22, 2015 A dministered Zoster 0.65mL (Zostavax) SC Subcutaneous Aug 03, 2011 Adminis tered Pneumococcal Adult 0.5mL (Pneumovax 23) IM Intramuscular [...] FOR REFERRAL No Information VITAL SIGNS Weight 160 lbs Jul, Height 62.5 in Jul, BMI 28.79 kg/m2 Jul, Blood pressure systolic 148 mm Hg Jul, Blood pressure diastolic 76 mm Hg Jul, MEDICATIONS Medication SIG (Take, Route, Frequency, Duration) Notes Start Da te End Date Status Align - Orally once a day Not-Ta malena Celecoxib 200 MG 1 capsule with food Orally Once a day for 90 day(s) Active Avapro 150 MG 1 tablet Orally Once a day for 90 day(s) Active Aldactone 100 MG 1 tablet with food Orally Once a day for 90 days Active Avapro 150 MG 1 tablet Orally Once a day Active FiberCon 625 MG 2 tablet as needed for constipation Orally daily Active Acetaminophen 500 MG 1 tablet as needed Orally every 6 hrs Jan, Active Synthroid 75 MCG 1 tablet Orally Once a day for 90 days Active Percocet 5-325 MG 1 tablet as needed Orally every 6 hrs Jul, Active Restasis 0.05 % 1 into affected eye Ophthalmic Twice a day Active Ibuprofen 800 MG 1 tablet with food or milk as needed Ora lly Three times a day Jul, Active Celecoxib 200 MG TAKE 1 CAPSULE DAILY WITH FOOD for 90 Active Flonase 50 MCG/ACT 2 sprays Nasally daily for 90 day(s) Active PROCEDURES No Information RESULTS No Results REASON FOR VISIT PRE OP SURG 08/19/20 MEDICAL (GENERAL) HISTORY Type Description Date Medical [...] Hospitalization History GI Bleed 07/2010 Hospitalization History [id number] 01/17/18 Hospitalization History Tash- Sepsis/UTI 11/2018 Goals Section No Information Health Concerns No Information MEDICAL EQUIPMENT No Information MENTAL STATUS No Information FUNCTIONAL STATUS No Information ASSESSMENTS Encounter Date Diagnosis Assessment Notes Treatment Notes Treatm ent Clinical Notes Jul, Vaginal prolapse (ICD-10 - N81.10) Pre-Operative CounselingProcedure: anterior and posterior repairsSurgeon: Jojo Verast: Everette Hampton M.D. Patient has been counseling regarding the risks of the procedure to include anesthesia risks to include , bleeding/need for blood transfusion, infection, damage to internal organs, postoperative pain and need for future surgery based on findings. She understands these risks and wishes to proceed with the above procedures. PLAN OF TREATMENT Medication Medication Name Sig Start Date Stop Date Percocet 5-325 MG 1 tablet as needed Orally every 6 hrs Jul, Ibuprofen 800 MG 1 tablet with food or milk as needed Ora lly Three times a day Jul, Treatment Notes Assessment Notes Clinical Notes Vaginal prolapse Pre-Operative Counse lingProcedure: anterior and posterior repairsSurgeon: Jojo Verast: Everette Hampton M.D. Patient has been counseling regarding the risks of the procedure to include anesthesia risks to include , bleeding/need for blood transfusion, infection, damage to internal organs, postoperative pain and need for future surgery based on findings. She understands these risks and wishes to proceed with the above procedures. Next Appt Details Provider Name:Yuliya Mueller, 2020-08-19 0 7:30:00 AM, [address] [place] [address], [phone], Provider Name:Everette Hampton 2020-08-19 07:30:00 AM, [address] [place] [address], [phone], Provider Name:Yuliya Mueller 2020-09-09 0 1:20:00 PM, [address] [place] [address], [phone], Provider Name:Yuliya Mueller 2020-09-28 0 1:20:00 PM, [address] [place] [address], [phone], Provider Name:Peter More, 09:30:00 AM, [address] [place] [address], [phone], Insurance Providers Payer Name Payer Address Payer Phone Insured Name Patient Relati onship to Insured Coverage Start Date Coverage End Date [facility] [address] [facility] [id number] [employer] MEDICARE Part A and B [address] [facility] [phone] KIP [employer] self
--- OUTSIDE RECORDS SUMMARY | 2020-08-19 06:08 | CCD ---
Author Author [facility] Organization [facility] Address Unknown Phone Unavailable Care Team Providers Care First Line Supervisor Name Role Phone Yuliya Mueller Unavailable PROBLEMS Type Condition ICD9-CM Code [id number] Code Onset Dates Condition S tatus SNOMED Code Notes Problem Diverticulosis of colon (without mention of hemorrhage) K57.30 Active 712439757 Problem Iron deficiency anemia due to chronic blood loss D 50.0 Active 15914949 Problem Mixed hyperlipidemia E78.2 Active 773919481 Problem Reflux esophagitis K21.0 Active 666432606 Problem Morbid obesity due to excess calories E66.01 Ac tive 276881860 Problem Controlled type 2 diabetes mellitus without complication E11.9 Active 303309994 Problem Allergic rhinitis, unspecified allergic rhinitis type J30.9 Active 65239291 Problem Gastro-esophageal reflux disease without esophagitis K21.9 Active 314057147 Problem Hypothyroidism, unspecified type E03.9 Active 86973070 Problem Essential hypertension I10 Active 35589048 Problem Menopausal and female climacteric states N95.1 Active 534787276 Problem Primary osteoarthritis of left hip M16.12 Activ e 736976872748650 Problem Status post total hip replacement, left Z96.642 Active 067779596932 ALLERGIES Allergen (clinical drug ingredient) Drug/Non Drug Allergy do cumented on EMR Reaction Allergy Type Onset Date Status Monistat 1 Itching Drug Allergy Active penicillamine Penicillamine(NDC Code:[address]-62) Rash Drug A llergy Active tetracycline Tetracycline HCl(NDC Code:[address]-92) Stomach pain Drug Allergy Active scopolamine Scopolamine(NDC Code:[address]-90) Contact dermatitis Drug Allergy Active erythromycin Erythromycin(ND Code:[address]-42) STomach brit n,itching Drug Allergy Active Sulfacet-R Anaphylaxis Drug Allergy Active ENCOUNTERS from 1950 to 2020-07-01 Encounter Location Date Provider Diagnosis [facility] [address] [place] [id number] Jun, [facility] IMMUNIZATIONS Vaccine Route Administration Date Status Influenza (18 yrs & older) Flublok IM Intramuscular May 16, 2019 Administered Influenza (18 yrs & older) Flublok IM Intramuscular Apr 27, 2020 Administered Influenza (High Dose 65 & up) IM Intramuscular May 08, 2017 A dministered Influenza (18 yrs & older) Flublok IM Intramuscular May 17, 2018 Administered Pneumococcal Adult 0.5mL (Pneumovax 23) IM Intramuscular May 16, 2019 Administered Influenza (6mo & up) Fluzone IM Intramuscular May 19, 2010 Ad ministered Influenza (High Dose 65 & up) IM Intramuscular May 02, 2016 A dministered Influenza (High Dose 65 & up) IM Intramuscular May 22, 2015 A dministered Pneumococcal 0.5mL (Prevnar 13) IM Intramuscular Feb 18, 2015 Administered Zoster 0.65mL (Zostavax) SC Subcutaneous Aug 03, 2011 Adminis tered Zoster 50mcg/0.5mL (Shingrix) Unknown Aug 23, 2019 Ad ministered Influenza (6mo & up) Fluzone IM Apr [...] History Observation Description Sex Assigned At Unknown Education: Question Answer Notes Level of Education: College Audit Question Answer Notes Total Score: 4 Interpretation: Alcohol Education Language: Question Answer Notes Languages spoken: Turkmen Buddhist: Question Answer Notes Buddhist No episcopal beliefs that would impact healthcare Sexual Hx: Question Answer Notes Had sex in the last 12 months (vaginal, oral, or anal)? No Have you ever had an STD? No Drug and Alcohol Question Answer Notes Total Score: 0 Interpretation: No problems reported Alcohol Screening: Question Answer Notes Did you have a drink containing alcohol in the past year? Ye s Points 3 Interpretation Positive How often did you have six or more drinks on one occas ion in the past year? Never (0 points) How many drinks did you have on a typica l day when you were drinking in the past year? 1 or 2 (0 points) How often did you have a drink containing alcohol in t he past year? Two to three times per week (3 points) BMI Care Goal Follow-Up Question Answer Notes Above Normal BMI Follow-Up Giving encouragement to exercise Tobacco Use: Question Answer Notes Are you a: never smoker REASON FOR REFERRAL No Information VITAL SIGNS No information MEDICATIONS Medication SIG (Take, Route, Frequency, Duration) Notes Start Da te End Date Status Acetaminophen 500 MG 1 tablet as needed Orally every 6 hrs Jan, Active Aldactone 100 MG 1 tablet with food Orally Once a day for 90 days Active Restasis 0.05 % 1 into affected eye Ophthalmic Twice a day Active Flonase 50 MCG/ACT 2 sprays Nasally daily for 90 day(s) Jan, Active Synthroid 75 MCG 1 tablet Orally Once a day for 90 days Active Avapro 150 MG 1 tablet Orally Once a day Active FiberCon 625 MG 2 tablet as needed for constipation Orally daily Active Celecoxib 200 MG TAKE 1 CAPSULE DAILY WITH FOOD for 90 Active Align - Orally once a day Active PROCEDURES No Information RESULTS No Results REASON FOR VISIT AUTHORIZATION MEDICAL (GENERAL) HISTORY Type Description Date Medical [...] Hospitalization History GI Bleed 07/2010 Hospitalization History Ioczi-WJ-[id number] 01/17/18 Hospitalization History Telephone- Sepsis/UTI 11/2018 Goals Section No Information Health Concerns No Information MEDICAL EQUIPMENT No Information MENTAL STATUS No Information FUNCTIONAL STATUS No Information ASSESSMENTS No Information PLAN OF TREATMENT Next Appt Details Provider Name:Peter More, 202 08:30:00 AM, [address], [place], [address], Provider Name:Yuliya Beaulieu Ervin, 2020-07-23 0 2:40:00 PM, [address] [place] [address], [phone], Provider Name:Yuliya Mueller, 2020-08-19 0 7:30:00 AM, [address] [place] [address], [phone], Provider Name:Everette Hampton, 2020-08-19 07:30:00 AM, [address] [place] [address], [phone], Provider Name:Yuliya Mueller, 2020-09-09 0 1:20:00 PM, [address] [place] [address], [phone], Provider Name:Yuliya Mueller, 2020-09-28 0 1:20:00 PM, [address] [place] [address], [phone], Provider Name:Peter More, 09:30:00 AM, [address], [place], [phone], Insurance Providers Payer Name Payer Address Payer Phone Insured Name Patient Relati onship to Insured Coverage Start Date Coverage End Date MEDICARE Part A and B [address] [facility] [id number] KIP BASS self [facility] [address] [facility] [id number] KIP BASS self
--- OUTSIDE RECORDS SUMMARY | 2020-08-19 06:08 | CCD ---
Author Author [facility] Organization [facility] Address Unknown Phone Unavailable Care Team Providers Care Console Manager Name Role Phone Peter More Unavailable PROBLEMS Type Condition ICD9-CM Code [id number] Code Onset Dates Condition S tatus SNOMED Code Notes Problem Diverticulosis of colon (without mention of hemorrhage) K57.30 Active 076332650 Problem Iron deficiency anemia due to chronic blood loss D 50.0 Active 04853530 Problem Mixed hyperlipidemia E78.2 Active 195835036 Problem Reflux esophagitis K21.0 Active 568881938 Problem Morbid obesity due to excess calories E66.01 Ac tive 294821802 Problem Controlled type 2 diabetes mellitus without complication E11.9 Active 397909894 Problem Allergic rhinitis, unspecified allergic rhinitis type J30.9 Active 55750560 Problem Gastro-esophageal reflux disease without esophagitis K21.9 Active 173627680 Problem Hypothyroidism, unspecified type E03.9 Active 27328014 Problem Essential hypertension I10 Active 88357359 Problem Menopausal and female climacteric states N95.1 Active 133979624 Problem Primary osteoarthritis of left hip M16.12 Activ e 210097303880571 Problem Status post total hip replacement, left Z96.642 Active 811001887353 ALLERGIES Allergen (clinical drug ingredient) Drug/Non Drug Allergy do cumented on EMR Reaction Allergy Type Onset Date Status Monistat 1 Itching Drug Allergy Active penicillamine Penicillamine(NDC Code:[address]-45) Rash Drug A llergy Active tetracycline Tetracycline HCl(ND Code:[address]-19) Stomach pain Drug Allergy Active scopolamine Scopolamine([facility] Code:[address]-99) Contact dermatitis Drug Allergy Active erythromycin Erythromycin(ND Code:[address]-80) STomach brit n,itching Drug Allergy Active Sulfacet-R Anaphylaxis Drug Allergy Active ENCOUNTERS from 1950 to 2020-06-29 Encounter Location Date Provider Diagnosis [facility] [address] [address] Jun Peter More IMMUNIZATIONS Vaccine Route Administration Date Status Influenza (18 yrs & older) Flublok IM Intramuscular May 16, 2019 Administered Influenza (18 yrs & older) Flublok IM Intramuscular Apr 27, 2020 Administered Zoster 50mcg/0.5mL (Shingrix) Unknown Aug 23, 2019 Ad ministered Influenza (High Dose 65 & [...] Education Language: Question Answer Notes Languages spoken: Icelandic Confucianist: Question Answer Notes Confucianist No zoroastrian beliefs that would impact healthcare Sexual Hx: [...] Information RESULTS No Results REASON FOR VISIT pre op clearance MEDICAL (GENERAL) HISTORY Type Description Date Medical [...] Hospitalization History GI Bleed 07/2010 Hospitalization History Uizif-FF-gjxosettrq 01/17/18 Hospitalization History Rhame- Sepsis/UTI 11/2018 Goals Section No Information Health Concerns No Information MEDICAL EQUIPMENT No Information MENTAL STATUS No Information FUNCTIONAL STATUS No Information ASSESSMENTS No Information PLAN OF TREATMENT Next Appt Details Provider Name:Peter More, 08:30:00 AM, [address], [place], [address], Provider Name:Yuliya Mueller, 2020-07-23 0 2:40:00 PM, [address] [place] [address], [phone], Provider Name:Yuliya Mueller, 2020-09-09 0 1:20:00 PM, [address] [place] [address], [phone], Provider Name:Yuliya Mueller, 2020-09-28 0 1:20:00 PM, [address] [place] [address], [phone], Provider Name:Peter More, 09:30:00 AM, [address], [place], [address], Insurance Providers Payer Name Payer Address Payer Phone Insured Name Patient Relati onship to Insured Coverage Start Date Coverage End Date [facility] [address] [facility] [id number] KIP BASS self MEDICARE Part A and B [address] [facility] [address] [phone] KIP BASS self
--- OUTSIDE RECORDS SUMMARY | 2020-08-19 06:09 | CCD ---
Author Author [facility] Organization [facility] Address Unknown Phone Unavailable Care Team Providers Care Wood Router Name Role Phone Sharad, A Mirlande PA Unavailable Unavailable Sharad, A Mirlande PA Unavailable Unavailable Sharad, A Mirlande PA Unavailable Unavailable Sharad, A Mirlande PA Unavailable Unavailable Sharad, A Mirlande PA Unavailable Unavailable Sharad, A Mirlande PA Unavailable Unavailable Sharad, A Mirlande PA Unavailable Unavailable Sharad, A Mirlande PA Unavailable Unavailable Sharad, A Mirlande PA Unavailable Unavailable Sharad, A Mirlande PA Unavailable Unavailable Sharad, A Mirlande PA Unavailable Unavailable Sharad, A Mirlande PA Unavailable Unavailable Sharad, A Mirlande PA Unavailable Unavailable Sharad, A Mirlande PA Unavailable Unavailable Sharad, A Mirlande PA Unavailable Unavailable Sharad, A Mirlande PA Unavailable Unavailable Sharad, A Mirlande PA Unavailable Unavailable Sharad, A Mirlande PA Unavailable Unavailable Sharad, A Mirlande PA Unavailable Unavailable ALONDRA, L DAI PA Unavailable Unavailable ALONDRA, L DAI PA Unavailable Unavailable ALONDRA, L DAI PA Unavailable Unavailable ALONDRA, L DAI PA Unavailable Unavailable ALONDRA, L DAI PA Unavailable Unavailable ALONDRA, L DAI PA Unavailable Unavailable ALONDRA, L DAI PA Unavailable Unavailable ALONDRA, L DAI PA Unavailable Unavailable ALONDRA, L DAI PA Unavailable Unavailable ALONDRA, L DAI PA Unavailable Unavailable ALONDRA, L DAI PA Unavailable Unavailable ALONDRA, L DAI PA Unavailable Unavailable ALONDRA, L DAI PA Unavailable Unavailable ALONDRA, L DAI PA Unavailable Unavailable ALONDRA, L DAI PA Unavailable Unavailable ALONDRA, L DAI PA Unavailable Unavailable ALONDRA, L DAI PA Unavailable Unavailable ALONDRA, L DAI PA Unavailable Unavailable ALONDRA, L DAI PA Unavailable Unavailable Messina Olivares, Zoey Craven MD, FACS Unavailable Unavailable Messina Olivares, Zoey Craven MD, FACS Unavailable Unavailable Messina Olivares, Zoey Craven MD, FACS Unavailable Unavailable Messina Olivares, Zoey Craven MD, FACS Unavailable Unavailable Messina Olivares, Zoey Craven MD, FACS Unavailable Unavailable Messina Olivares, Zoey Craven MD, FACS Unavailable Unavailable Messina Olivares, Zoey Craven MD, FACS Unavailable Unavailable Messina Olivares, Zoey Craven MD, FACS Unavailable Unavailable Messina Olivares, Zoey Craven MD, FACS Unavailable Unavailable Messina Olivares, Zoey Craven MD, FACS Unavailable Unavailable Messina Olivares, Zoey Craven MD, FACS Unavailable Unavailable Messina Olivares, Zoey Craven MD, FACS Unavailable Unavailable Messina Olivares, Zoey Craven MD, FACS Unavailable Unavailable Messina Olivares, Zoey Craven MD, FACS Unavailable Unavailable Messina Olivares, Zoey Craven MD, FACS Unavailable Unavailable Messina Olivares, Zoey Craven MD, FACS Unavailable Unavailable Messina Olivares, Zoey Craven MD, FACS Unavailable Unavailable Messina Olivares, Zoey Craven MD, FACS Unavailable Unavailable Messina Olivares, Zoey Craven MD, FACS Unavailable Unavailable Messina Olivares, Zoey Craven MD, FACS Unavailable Unavailable Messina Olivares, Zoey Craven MD, FACS Unavailable Unavailable Messina Olivares, Zoey Craven MD, FACS Unavailable Unavailable Messina Olivares, Zoey Craven MD, FACS Unavailable Unavailable Messina Olivares, Zoey Craven MD, FACS Unavailable Unavailable Messina Olivares, Zoey Craven MD, FACS Unavailable Unavailable Messina Olivares, Zoey Craven MD, FACS Unavailable Unavailable Messina Olivares, Zoey Craven MD, FACS Unavailable Unavailable Messina Olivares, Zoey Craven MD, FACS Unavailable Unavailable Messina Olivares, Zoey Craven MD, FACS Unavailable Unavailable Messina Olivares, Zoey Craven MD, FACS Unavailable Unavailable Messina Olivares, Zoey Craven MD, FACS Unavailable Unavailable Messina Olivares, Zoey Craven MD, FACS Unavailable Unavailable Messina Olivares, Zoey Craven MD, FACS Unavailable Unavailable Messina Olivares, Zoey Craven MD, FACS Unavailable Unavailable VIV, SONIA AGUDELO MD Unavailable Unavailable VIV, SONIA AGUDELO MD Unavailable Unavailable VIV, SONIA AGUDELO MD Unavailable Unavailable VIV, SONIA AGUDELO MD Unavailable Unavailable VIV, SONIA AGUDELO MD Unavailable Unavailable VIV, SONIA AGUDELO MD Unavailable Unavailable VIV, SONIA AGUDELO MD Unavailable Unavailable VIV, SONIA AGUDELO MD Unavailable Unavailable VVI, SONIA AGUDELO MD Unavailable Unavailable VIV, SONIA AGUDELO MD Unavailable Unavailable VIV, SONIA AGUDELO MD Unavailable Unavailable VIV, PRYJMA JAMMIE MD Unavailable Unavailable VIV, PRYJMA JAMMIE MD Unavailable Unavailable VIV, PRYJMA JAMMIE MD Unavailable Unavailable VIV, PRYJMA JAMMIE MD Unavailable Unavailable VIV, PRYJMA JAMMIE MD Unavailable Unavailable VIV, PRYJMA JAMMIE MD Unavailable Unavailable VIV, PRYJMA JAMMIE MD Unavailable Unavailable VIV, PRYJMA JAMMIE MD Unavailable Unavailable VIV, PRYJMA JAMMIE MD Unavailable Unavailable VIV, PRYJMA JAMMIE MD Unavailable Unavailable VIV, PRYJMA JAMMIE MD Unavailable Unavailable VIV, PRYJMA JAMMIE MD Unavailable Unavailable VIV, PRYJMA JAMMIE MD Unavailable Unavailable VIV, PRYJMA JAMMIE MD Unavailable Unavailable VIV, PRYJMA JAMMIE MD Unavailable Unavailable VIV, PRYJMA JAMMIE MD Unavailable Unavailable VIV, PRYJMA JAMMIE MD Unavailable Unavailable Jepma, W Everette DO Unavailable Unavailable Jepma, W Everette DO Unavailable Unavailable Jepma, W Everette DO Unavailable Unavailable Jepma, W Everette DO Unavailable Unavailable Jepma, W Everette DO Unavailable Unavailable Jepma, W Everette DO Unavailable Unavailable Jepma, W Everette DO Unavailable Unavailable Jepma, W Everette DO Unavailable Unavailable Jepma, W Everette DO Unavailable Unavailable Jepma, W Everette DO Unavailable Unavailable Jepma, W Everette DO Unavailable Unavailable Jepma, W Everette DO Unavailable Unavailable Jepma, W Everette DO Unavailable Unavailable Jepma, W Everette DO Unavailable Unavailable Jepma, W Everette DO Unavailable Unavailable Jepma, W Everette DO Unavailable Unavailable Jepma, W Everette DO Unavailable Unavailable Jepma, W Everette DO Unavailable Unavailable Jepma, W Everette DO Unavailable Unavailable Jepma, W Everette DO Unavailable Unavailable Jepma, W Everette DO Unavailable Unavailable Jepma, W Everette DO Unavailable Unavailable Jepma, W Everette DO Unavailable Unavailable Jepma, W Everette DO Unavailable Unavailable Jepma, W Everette DO Unavailable Unavailable Jepma, W Everette DO Unavailable Unavailable Jepma, W Everette DO Unavailable Unavailable Jepma, W Everette DO Unavailable Unavailable Jepma, W Everette DO Unavailable Unavailable Jepma, W Everette DO Unavailable Unavailable Jepma, W Everette DO Unavailable Unavailable Jepma, W Everette DO Unavailable Unavailable Jepma, W Everette DO Unavailable Unavailable Jepma, W Everette DO Unavailable Unavailable Jepma, W Everette DO Unavailable Unavailable Jepma, W Everette DO Unavailable Unavailable Jepma, W Everette DO Unavailable Unavailable Jepma, W Everette DO Unavailable Unavailable Jepma, W Everette DO Unavailable Unavailable Jepma, W Everette DO Unavailable Unavailable Jepma, W Everette DO Unavailable Unavailable Jepma, W Everette DO Unavailable Unavailable Jepma, W Everette DO Unavailable Unavailable Jepma, W Everette DO Unavailable Unavailable Jepma, W Everette DO Unavailable Unavailable Jepma, W Everette DO Unavailable Unavailable Jepma, W Everette DO Unavailable Unavailable Jepma, W Everette DO Unavailable Unavailable Jepma, W Everette DO Unavailable Unavailable Jepma, W Everette DO Unavailable Unavailable Jepma, W Everette DO Unavailable Unavailable Jepma, W Everette DO Unavailable Unavailable Jepma, W Everette DO Unavailable Unavailable Jepma, W Everette DO Unavailable Unavailable Jepma, W Everette DO Unavailable Unavailable Jepma, W Everette DO Unavailable Unavailable Jepma, W Everette DO Unavailable Unavailable Jepma, W Everette DO Unavailable Unavailable Jepma, W Everette DO Unavailable Unavailable HUIZENGA, Diaz SALCIDO DO Unavailable Unavailable HUIZENGA, Diaz SALCIDO DO Unavailable Unavailable HUIZENGA, Diaz SALCIDO DO Unavailable Unavailable HUIZENGA, Diaz SALCIDO DO Unavailable Unavailable HUIZENGA, Diaz SALCIDO DO Unavailable Unavailable HUIZENGA, Diaz SALCIDO DO Unavailable Unavailable HUIZENGA, Diaz SALCIDO DO Unavailable Unavailable HUIZENGA, Diaz SALCIDO DO Unavailable Unavailable HUIZENGA, Diaz SALCIDO DO Unavailable Unavailable HUIZENGA, Diaz SALCIDO DO Unavailable Unavailable HUIZENGA, Diaz SALCIDO DO Unavailable Unavailable HUIZENGA, Diaz SALCIDO DO Unavailable Unavailable HUIZENGA, Diaz SALCIDO DO Unavailable Unavailable HUIZENGA, Diaz SALCIDO DO Unavailable Unavailable HUIZENGA, Diaz SALCIDO DO Unavailable Unavailable HUIZENGA, Diaz SALCIDO DO Unavailable Unavailable HUIZENGA, Diaz SALCIDO DO Unavailable Unavailable HUIZENGA, Diaz SALCIDO DO Unavailable Unavailable HUIZENGA, Diaz SALCIDO DO Unavailable Unavailable HUIZENGA, Diaz SALCIDO DO Unavailable Unavailable HUIZENGA, Diaz SALCIDO DO Unavailable Unavailable HUIZENGA, Diaz SALCIDO DO Unavailable Unavailable HUIZENGA, Diaz SALCIDO DO Unavailable Unavailable HUIZENGA, Diaz SALCIDO DO Unavailable Unavailable HUIZENGA, Diaz SALCIDO DO Unavailable Unavailable HUIZENGA, Diaz SALCIDO DO Unavailable Unavailable HUIZENGA, Diaz SALCIDO DO Unavailable Unavailable HUIZENGA, Daiz SALCIDO DO Unavailable Unavailable HUIZENGA, Diaz SALCIDO DO Unavailable Unavailable HUIZENGA, Diaz SALCIDO DO Unavailable Unavailable HUIZENGA, Diaz SALCIDO DO Unavailable Unavailable HUIZENGA, Diaz SALCIDO DO Unavailable Unavailable HUIZENGA, Diaz SALCIDO DO Unavailable Unavailable HUIZENGA, Diaz SALCIDO DO Unavailable Unavailable HUIZENGA, Diaz SALCIDO DO Unavailable Unavailable HUIZENGA, Diaz SALCIDO DO Unavailable Unavailable HUIZENGA, Diaz SALCIDO DO Unavailable Unavailable HUIZENGA, Diaz SALCIDO DO Unavailable Unavailable HUIZENGA, Diaz SALCIDO DO Unavailable Unavailable HUIZENGA, Diaz SALCIDO DO Unavailable Unavailable HUIZENGA, Diaz SALCIDO DO Unavailable Unavailable HUIZENGA, Diaz SALCIDO DO Unavailable Unavailable HUIZENGA, Diaz SALCIDO DO Unavailable Unavailable HUIZENGA, Diaz SALCIDO DO Unavailable Unavailable HUIZENGA, Diaz SALCIDO DO Unavailable Unavailable HUIZENGA, Diaz SALCIDO DO Unavailable Unavailable HUIZENGA, Diaz SALCIDO DO Unavailable Unavailable HUIZENGA, Diaz SALCIDO DO Unavailable Unavailable HUIZENGA, Diaz SALCIDO DO Unavailable Unavailable HUIZENGA, Diaz SALCIDO DO Unavailable Unavailable HUIZENGA, Diaz SALCIDO DO Unavailable Unavailable HUIZENGA, Diaz SALCIDO DO Unavailable Unavailable HUIZENGA, Diaz SALCIDO DO Unavailable Unavailable HUIZENGA, Diaz SALCIDO DO Unavailable Unavailable HUIZENGA, Diaz SALCIDO DO Unavailable Unavailable HUIZENGA, Diaz SALCIDO DO Unavailable Unavailable HUIZENGA, Diaz SALCIDO DO Unavailable Unavailable HUIZENGA, Diaz SALCIDO DO Unavailable Unavailable HUIZENGA, Diaz SALCIDO DO Unavailable Unavailable HUIZENGA, Diaz SALCIDO DO Unavailable Unavailable HUIZENGA, Diaz SALCIDO DO Unavailable Unavailable HUIZENGA, Diaz SALCIDO DO Unavailable Unavailable HUIZENGA, Diaz SALCIDO DO Unavailable Unavailable HUIZENGA, Diaz SALCIDO DO Unavailable Unavailable HUIZENGA, Diaz SALCIDO DO Unavailable Unavailable HUIZENGA, Diaz SALCIDO DO Unavailable Unavailable HUIZENGA, Diaz SALCIDO DO Unavailable Unavailable HUIZENGA, Diaz SALCIDO DO Unavailable Unavailable HUIZENGA, Diaz SALCIDO DO Unavailable Unavailable HUIZENGA, D OMARI DO Unavailable Unavailable HUIZENGA, D OMARI DO Unavailable Unavailable HUIZENGA, D OMARI DO Unavailable Unavailable HUIZENGA, D OMARI DO Unavailable Unavailable GREENKY, B STANTON MD Unavailable Unavailable GREENKY, B STANTON MD Unavailable Unavailable GREENKY, B STANTON MD Unavailable Unavailable GREENKY, B STANTON MD Unavailable Unavailable GREENKY, B STANTON MD Unavailable Unavailable GREENKY, B STANTON MD Unavailable Unavailable GREENKY, B STANTON MD Unavailable Unavailable GREENKY, B STANTON MD Unavailable Unavailable GREENKY, B STANTON MD Unavailable Unavailable GREENKY, B STANTON MD Unavailable Unavailable GREENKY, B STANTON MD Unavailable Unavailable GREENKY, B STANTON MD Unavailable Unavailable GREENKY, B STANTON MD Unavailable Unavailable GREENKY, B STANTON MD Unavailable Unavailable GREENKY, B STANTON MD Unavailable Unavailable GREENKY, B STANTON MD Unavailable Unavailable GREENKY, B STANTON MD Unavailable Unavailable GREENKY, B STANTON MD Unavailable Unavailable GREENKY, B STANTON MD Unavailable Unavailable GREENKY, B STANTON MD Unavailable Unavailable GREENKY, B STANTON MD Unavailable Unavailable GREENKY, B STANTON MD Unavailable Unavailable GREENKY, B STANTON MD Unavailable Unavailable GREENKY, B STANTON MD Unavailable Unavailable GREENKY, B STANTON MD Unavailable Unavailable GREENKY, B STANTON MD Unavailable Unavailable GREENKY, B STANTON MD Unavailable Unavailable GREENKY, B STANTON MD Unavailable Unavailable GREENKY, B STANTON MD Unavailable Unavailable GREENKY, B STANTON MD Unavailable Unavailable GREENKY, B STANTON MD Unavailable Unavailable GREENKY, B STANTON MD Unavailable Unavailable GREENKY, B STANTON MD Unavailable Unavailable GREENKY, B STANTON MD Unavailable Unavailable GREENKY, B STANTON MD Unavailable Unavailable GREENKY, B STANTON MD Unavailable Unavailable GREENKY, B STANTON MD Unavailable Unavailable GREENKY, B STANTON MD Unavailable Unavailable GREENKY, B STANTON MD Unavailable Unavailable GREENKY, B STANTON MD Unavailable Unavailable GREENKY, B STANTON MD Unavailable Unavailable GREENKY, B STANTON MD Unavailable Unavailable GREENKY, B STANTON MD Unavailable Unavailable GREENKY, B STANTON MD Unavailable Unavailable GREENKY, B STANTON MD Unavailable Unavailable GREENKY, B STANTON MD Unavailable Unavailable GREENKY, B STANTON MD Unavailable Unavailable GREENKY, B STANTON MD Unavailable Unavailable GREENKY, B STANTON MD Unavailable Unavailable GREENKY, B STANTON MD Unavailable Unavailable GREENKY, B STANTON MD Unavailable Unavailable GREENKY, B STANTON MD Unavailable Unavailable GREENKY, B STANTON MD Unavailable Unavailable GREENKY, B STANTON MD Unavailable Unavailable GREENKY, B STANTON MD Unavailable Unavailable GREENKY, B STANTON MD Unavailable Unavailable GREENKY, B STANTON MD Unavailable Unavailable GREENKY, B STANTON MD Unavailable Unavailable GREENKY, B STANTON MD Unavailable Unavailable GREENKY, B STANTON MD Unavailable Unavailable GREENKY, B STANTON MD Unavailable Unavailable GREENKY, B STANTON MD Unavailable Unavailable GREENKY, B STANTON MD Unavailable Unavailable GREENKY, B STANTON MD Unavailable Unavailable GREENKY, B STANTON MD Unavailable Unavailable GREENKY, B STANTON MD Unavailable Unavailable GREENKY, B STANTON MD Unavailable Unavailable GREENKY, B STANTON MD Unavailable Unavailable GREENKY, B STANTON MD Unavailable Unavailable GREENKY, B STANTON MD Unavailable Unavailable GREENKY, B STANTON MD Unavailable Unavailable GREENKY, B STANTON MD Unavailable Unavailable GREENKY, B STANTON MD Unavailable Unavailable GREENKY, B STANTON MD Unavailable Unavailable GREENKY, B STANTON MD Unavailable Unavailable GREENKY, B STANTON MD Unavailable Unavailable GREENKY B STANTON MD Unavailable Unavailable GREENKY, B STANTON MD Unavailable Unavailable GREENKY B STANTON MD Unavailable Unavailable GREENKY, B STANTON MD Unavailable Unavailable GREENKY B STANTON MD Unavailable Unavailable GREENKY, B STANTON MD Unavailable Unavailable GREENKY B STANTON MD Unavailable Unavailable GREENKY B STANTON MD Unavailable Unavailable GREENKY B STANTON MD Unavailable Unavailable GREENKY B STANTON MD Unavailable Unavailable GREENKY, B STANTON MD Unavailable Unavailable GREENKY B STANTON MD Unavailable Unavailable GREENKY, B STANTON MD Unavailable Unavailable SOJEWICZ, JONY PA Unavailable Unavailable SOJEWICZ, JONY PA Unavailable Unavailable SOJEWICZ, JONY PA Unavailable Unavailable SOJEWICZ, JONY PA Unavailable Unavailable SOJEWICZ, JONY PA Unavailable Unavailable SOJEWICZ, JONY PA Unavailable Unavailable SOJEWICZ, JONY PA Unavailable Unavailable SOJEWICZ, JONY PA Unavailable Unavailable SOJEWICZ, JONY PA Unavailable Unavailable SOJEWICZ, JONY PA Unavailable Unavailable SOJEWICZ, JONY PA Unavailable Unavailable SOJEWICZ, JONY PA Unavailable Unavailable SOJEWICZ, JONY PA Unavailable Unavailable SOJEWICZ, JONY PA Unavailable Unavailable SOJEWICZ, JONY PA Unavailable Unavailable SOJEWICZ, JONY PA Unavailable Unavailable SOJEWICZ, JONY PA Unavailable Unavailable SOJEWICZ, JONY PA Unavailable Unavailable SOJEWICZ, JONY PA Unavailable Unavailable SOJEWICZ, JONY PA Unavailable Unavailable SOJEWICZ, JONY PA Unavailable Unavailable SOJEWICZ, JONY PA Unavailable Unavailable SOJEWICZ, OJNY PA Unavailable Unavailable SOJEWICZ, JONY PA Unavailable Unavailable SOJEWICZ, JONY PA Unavailable Unavailable SOJEWICZ, JONY PA Unavailable Unavailable SOJEWICZ, JONY PA Unavailable Unavailable SOJEWICZ, JONY PA Unavailable Unavailable SOJEWICZ, JONY PA Unavailable Unavailable SOJEWICZ, JONY PA Unavailable Unavailable SOJEWICZ, JONY PA Unavailable Unavailable SOJEWICZ, JONY PA Unavailable Unavailable SOJEWICZ, JONY PA Unavailable Unavailable SOJEWICZ, JONY PA Unavailable Unavailable SOJEWICZ, JONY PA Unavailable Unavailable SOJEWICZ, JONY PA Unavailable Unavailable SOJEWICZ, JONY PA Unavailable Unavailable SOJEWICZ, JONY PA Unavailable Unavailable DAYNAKYJean STANTON MD Unavailable Unavailable DAYNAKYJean STANTON MD Unavailable Unavailable DAYNAKY B STANTON MD Unavailable Unavailable GREENKY B STANTON Unavailable Unavailable DAYNAKY B STANTON Unavailable Unavailable GREENKY B STANTON Unavailable Unavailable GREENKY B STANTON Unavailable Unavailable GREENKY B STANTON Unavailable Unavailable GREENKY B STANTON Unavailable Unavailable GREENKY B STANTON Unavailable Unavailable GREENKY B STANTON Unavailable Unavailable GREENKY B STANTON Unavailable Unavailable GREENKY B STANTON Unavailable Unavailable GREENKY B STANTON Unavailable Unavailable GREENKY B STANTON Unavailable Unavailable GREENKY B STANTON Unavailable Unavailable GREENKY B STANTON Unavailable Unavailable GREENKY B STANTON Unavailable Unavailable GREENKY B STANTON Unavailable Unavailable GREENKY B STANTON Unavailable Unavailable GREENKY B STANTON Unavailable Unavailable GREENKY B STANTON Unavailable Unavailable GREENKY B STANTON Unavailable Unavailable GREENKY B STANTON Unavailable Unavailable GREENKY, B STANTON Unavailable Unavailable GREENKY B STANTON Unavailable Unavailable GREENKY B STANTON Unavailable Unavailable GREENKY B STANTON Unavailable Unavailable GREENKY B STANTON Unavailable Unavailable GREENKY, B STANTON Unavailable Unavailable GREENKY B STANTON Unavailable Unavailable GREENKY, B STANTON Unavailable Unavailable GREENKY, B STANTON Unavailable Unavailable GREENKY B STANTON Unavailable Unavailable GREENKY, B STANTON Unavailable Unavailable GREENKY B STANTON MD Unavailable Unavailable GREENKY, B STANTON MD Unavailable Unavailable GREENKY, B STANTON MD Unavailable Unavailable GREENKY, B STANTON MD Unavailable Unavailable GREENKY, B STANTON MD Unavailable Unavailable GREENKY, B STANTON MD Unavailable Unavailable GREENKY, B STANTON MD Unavailable Unavailable GREENKY, B STANTON MD Unavailable Unavailable GREENKY, B STANTON MD Unavailable Unavailable GREENKY, B STANTON MD Unavailable Unavailable GREENKY, B TSANTON MD Unavailable Unavailable GREENKY, B STANTON MD Unavailable Unavailable GREENKY, B STANTON MD Unavailable Unavailable GREENKY, B STANTON MD Unavailable Unavailable GREENKY, B STANTON MD Unavailable Unavailable GREENKY, B STANTON MD Unavailable Unavailable GREENKY, B STANTON MD Unavailable Unavailable GREENKY, B STANTON MD Unavailable Unavailable GREENKY, B STANTON MD Unavailable Unavailable GREENKY, B STANTON MD Unavailable Unavailable GREENKY, B STANTON MD Unavailable Unavailable GREENKY, B STANTON MD Unavailable Unavailable GREENKY, B STANTON MD Unavailable Unavailable GREENKY, B STANTON MD Unavailable Unavailable GREENKY, B STANTON MD Unavailable Unavailable GREENKY, B STANTON MD Unavailable Unavailable GREENKY, B STANTON MD Unavailable Unavailable GREENKY, B STANTON MD Unavailable Unavailable GREENKY, B STANTON MD Unavailable Unavailable GREENKY, B STANTON MD Unavailable Unavailable GREENKY, B STANTON MD Unavailable Unavailable GREENKY, B STANTON MD Unavailable Unavailable GREENKY, B STANTON MD Unavailable Unavailable GREENKY, B STANTON MD Unavailable Unavailable GREENKY, B STANTON MD Unavailable Unavailable GREENKY, B STANTON MD Unavailable Unavailable GREENKY, B STANTON MD Unavailable Unavailable GREENKY, B STANTON MD Unavailable Unavailable GREENKY, B STANTON MD Unavailable Unavailable GREENKY, B STANTON MD Unavailable Unavailable GREENKY, B STANTON MD Unavailable Unavailable GREENKY, B STANTON MD Unavailable Unavailable GREENKY, B STANTON MD Unavailable Unavailable GREENKY, B STANTON MD Unavailable Unavailable GREENKY, B STANTON MD Unavailable Unavailable GREENKY, B STANTON MD Unavailable Unavailable GREENKY, B STANTON MD Unavailable Unavailable GREENKY, B STANTON MD Unavailable Unavailable GREENKY, B STANTON MD Unavailable Unavailable GREENKY, B STANTON MD Unavailable Unavailable GREENKY, B STANTON MD Unavailable Unavailable GREENKY, B STANTON MD Unavailable Unavailable GREENKY, B STANTON MD Unavailable Unavailable GREENKY, B STANTON MD Unavailable Unavailable Diaz OLSON DO Unavailable Unavailable Diaz OLSON DO Unavailable Unavailable HUIZENGA, Diaz SALCIDO DO Unavailable Unavailable HUIZENGA, Diaz SALCIDO DO Unavailable Unavailable HUIZENGA, Diaz SALCIDO DO Unavailable Unavailable HUIZENGA, Diaz SALCIDO DO Unavailable Unavailable HUIZENGA, Diaz SALCIDO DO Unavailable Unavailable HUIZENGA, Diaz SALCIDO DO Unavailable Unavailable HUIZENGA, Diaz SALCIDO DO Unavailable Unavailable HUIZENGA, Diaz SALCIDO DO Unavailable Unavailable HUIZENGA, Diaz SALCIDO DO Unavailable Unavailable HUIZENGA, Diaz SALCIDO DO Unavailable Unavailable HUIZENGA, Diaz SALCIDO DO Unavailable Unavailable HUIZENGA, Diaz SALCIDO DO Unavailable Unavailable HUIZENGA, Diaz SALCIDO DO Unavailable Unavailable HUIZENGA, Diaz SALCIDO DO Unavailable Unavailable HUIZENGA, Diaz SALCIDO DO Unavailable Unavailable HUIZENGA, Diaz SALCIDO DO Unavailable Unavailable HUIZENGA, Diaz SALCIDO DO Unavailable Unavailable HUIZENGA, Diaz SALCIDO DO Unavailable Unavailable HUIZENGA, Diaz SALCIDO DO Unavailable Unavailable HUIZENGA, Diaz SALCIDO DO Unavailable Unavailable HUIZENGA, Diaz SALCIDO DO Unavailable Unavailable HUIZENGA, Diaz SALCIDO DO Unavailable Unavailable HUIZENGA, Diaz SALCIDO DO Unavailable Unavailable HUIZENGA, Diaz SALCIDO DO Unavailable Unavailable HUIZENGA, Diaz SALCIDO DO Unavailable Unavailable HUIZENGA, Diaz SALCIDO DO Unavailable Unavailable HUIZENGA, Diaz SALCIDO DO Unavailable Unavailable HUIZENGA, Diaz SALCIDO DO Unavailable Unavailable HUIZENGA, Diaz SALCIDO DO Unavailable Unavailable HUIZENGA, Diaz SALCIDO DO Unavailable Unavailable HUIZENGA, Diaz SALCIDO DO Unavailable Unavailable HUIZENGA, Diaz SALCIDO DO Unavailable Unavailable HUIZENGA, Diaz SALCIDO DO Unavailable Unavailable HUIZENGA, Diaz SALCIDO DO Unavailable Unavailable HUIZENGA, Diaz SALCIDO DO Unavailable Unavailable HUIZENGA, Diaz SALCIDO DO Unavailable Unavailable HUIZENGA, Diaz SALCIDO DO Unavailable Unavailable HUIZENGA, Diaz SALCIDO DO Unavailable Unavailable HUIZENGA, Diaz SALCIDO DO Unavailable Unavailable HUIZENGA, Diaz SALCIDO DO Unavailable Unavailable HUIZENGA, Diaz SALCIDO DO Unavailable Unavailable HUIZENGA, Diaz SALCIDO DO Unavailable Unavailable HUIZENGA, Diaz SALCIDO DO Unavailable Unavailable HUIZENGA, Diaz SALCIDO DO Unavailable Unavailable HUIZENGA, Diaz SALCIDO DO Unavailable Unavailable HUIZENGA, D OMARI DO Unavailable Unavailable HUIZENGA, D OMARI DO Unavailable Unavailable HUIZENGA, D OMARI DO Unavailable Unavailable HUIZENGA, D OMARI DO Unavailable Unavailable HUIZENGA, D OMARI DO Unavailable Unavailable HUIZENGA, D OMARI DO Unavailable Unavailable HUIZENGA, D OMARI DO Unavailable Unavailable HUIZENGA, D OMARI DO Unavailable Unavailable HUIZENGA, D OMARI DO Unavailable Unavailable HUIZENGA, D OMARI DO Unavailable Unavailable HUIZENGA, D OMARI DO Unavailable Unavailable HUIZENGA, D OMARI DO Unavailable Unavailable HUIZENGA, D OMARI DO Unavailable Unavailable HUIZENGA, D OMARI DO Unavailable Unavailable HUIZENGA, D OMARI DO Unavailable Unavailable HUIZENGA, D OMARI DO Unavailable Unavailable HUIZENGA, D OMARI DO Unavailable Unavailable HUIZENGA, D OMARI DO Unavailable Unavailable HUIZENGA, D OMARI DO Unavailable Unavailable HUIZENGA, D OMARI DO Unavailable Unavailable HUIZENGA, D OMARI DO Unavailable Unavailable HUIZENGA, D OMARI DO Unavailable Unavailable HUIZENGA, D OMARI DO Unavailable Unavailable HUIZENGA, D OMARI DO Unavailable Unavailable HUIZENGA, D OMARI DO Unavailable Unavailable HUIZENGA, D OMARI DO Unavailable Unavailable Re-disclosure Warning The records that you are about to access may contain information from federally-assisted alcohol or drug abuse programs. If such information is present, then the following federally mandated warning applies: This information has been disclosed to you from records protected by federal confidentiality rules (42 CFR part 2). The federal rules prohibit you from making any further disclosure of this information unless further disclosure is expressly permitted by the written consent of the person to whom it pertains or as otherwise permitted by 42 CFR part 2. A general authorization for the release of medical or other information is NOT sufficient for this purpose. The Federal rules restrict any use of the information to criminally investigate or prosecute any alcohol or drug abuse patient.The records that you are about to access may contain highly sensitive health information, the redisclosure of which is protected by Article 27-F of the [facility] Public Health law. If you continue you may have access to information: Regarding HIV / AIDS; Provided by facilities licensed or operated by the [facility] Office of Mental Health; or Provided by the [facility] Office for People With Developmental Disabilities. If such information is present, then the following [facility] mandated warning applies: This information has been disclosed to you from confidential records which are protected by state law. State law prohibits you from making any further disclosure of this information without the specific written consent of the person to whom it pertains, or as otherwise permitted by law. Any unauthorized further disclosure in violation of state law may result in a fine or alf sentence or both. A general authorization for the release of medical or other information is NOT sufficient authorization for further disc losure. Allergies and Adverse Reactions Type Description Substance Reaction Status Data Source(s ) Drug allergy Scopolamine Scopolamine Contact dermatitis Active e CW1 ([facility]) tetracycline Tetracycline HCl Tetracycline Stomach pain Active e CW1 ([facility]) Drug allergy Penicillamine Penicillamine Rash Active eCW1 ( [facility]) Sulfacet-R Sulfacet-R Sulfacet-R Anaphylaxis Active eCW1 [facility] Erythromycin Erythromycin Erythromycin 500 MG Delayed Rele ase Oral Tablet STomach pain,itching Active eCW1 ([facility]) Monistat 1 Monistat 1 Monistat 1 Itching Active [facility] Family History Family Member Name Family Member Gender Family Member Status Date o f Status Description Data Source(s) Unknown Male Problem MEDENT ([facility]) Encounters Encounter Providers Location Date Indications Data Source(s ) Outpatient [address] [facility] [address] 07/23/2020 12:00:00 AM EST eCW1 ([facility]) Outpatient [address] [facility] [place] [address] 07/23/2020 12:00:00 AM EST eCW1 ([facility]) Unknown [address] [facility] [place] [address] 06/30/2020 12:00:00 AM EST eCW1 ([facility]) Unknown [address] [facility] [place] [address] 06/26/2020 12:00:00 AM EST eCW1 ([facility]) Outpatient [address] [facility] [address] 06/24/2020 12:00:00 AM EST eCW1 ([facility]) Outpatient<td ID="encounterTypeDescripti onID0">1 Year Follow-Up</td><td>Herber Thornton MD, FACS</td><td>Herber Thornton MD [facility]</td><td>06/22/2020</td><td>8:57AM</td><td>06/17/2019 11:59PM</td> <td><content ID="encounterDiagnosisID0-0">Abnormal Glucose</content>, <content ID="encounterDiagnosisID0-1">Dry Eye Syndrome Both Eyes</content>, <content ID="encounterDiagnosisID0-2">Essential Hypertension</content>, <content ID="encounterDiagnosisID0-3">Retinopathy Hypertensive Both Eyes</content>, <content ID="encounterDiagnosisID0-4">Vitreous Disorders Degeneration</content></td> Attender: Herber Olivares MD, FACS Herber Thornton MD [facility] 06/22/2020 08:57:00 AM EST - 06/17/2019 11:59:00 PM ES T Abnormal GlucoseVitreous Disorders DegenerationEssential HypertensionRetinopathy Hypertensive Both EyesDry Eye Syndrome Both Eyes RADHA (Herber Olivares MD [facility]) Abnormal Glucose Vitreous Disorders Degeneration Essential Hypertension Retinopathy Hypertensive Both Eyes Dry Eye Syndrome Both Eyes Out[place] [address] [facility] [address] 05/11/2020 12:00:00 AM EST eCW1 ([facility]) Unknown [address] [facility] [address] 05/08/2020 12:00:00 AM EDT eCW1 ([facility]) Outpatient [address] [facility] [place] [address] 04/27/2020 12:00:00 AM EDT eCW1 ([facility]) Outpatient Attender: JONY Cruzer: OMARI AGUILAR DO 02/05/2020 04:26:45 PM EDT [facility] Recurring Patient Attender: STANTON DEGROOTeferrer: OMARI AGUILAR DO 01/31/2020 02:41:03 PM EDT [facility] [address] [address] 11/21/2019 12:00:00 AM EDT eCW1 ([facility]) Emergency Attender: DAI Martin: OMARI REZA DO 09/22/2019 02:00:00 PM EDT - 09/22/2019 02:24:00 PM EDT [facility] Patient discharged. Outpatient Attender: Mirlande Cruzer: OMARI Greer DO 08/01/2019 03:47:17 PM EST [facility] [address] [address] 06/24/2019 12:00:00 AM EST eCW1 ([facility]) Outpatient Attender: STANTON REYNAGA MD 02/07 07:53:00 AM EDT - 03/09/2019 12:00:00 AM [facility] Patient discharged. Outpatient Attender: OMARI Thompson: OMARI REZA DO 11/26/2018 05:45:00 PM EDT - 11/26/2018 05:45:00 PM EDT [facility] Out[facility] Attender: JAMMIE DEGROOTeferrer: Everette Quesada DO 12/02/2015 09:00:00 AM [facility] Immunizations Vaccine Date Status Description Data Source(s) influenza, recombinant, quadrIvalent,injectable, prese rvative free 04/27/2020 08:36:00 AM EDT completed eCW1 ([facility]) influenza, recombinant, quadrIvalent,injectable, prese rvative free 04/27/2020 08:36:00 AM EDT completed eCW1 ([facility]) influenza, recombinant, quadrIvalent,injectable, prese rvative free 04/27/2020 08:36:00 AM EDT completed eCW1 ([facility]) influenza, recombinant, quadrIvalent,injectable, prese rvative free 04/27/2020 08:36:00 AM EDT completed eCW1 ([facility]) influenza, recombinant, quadrIvalent,injectable, prese rvative free 04/27/2020 08:36:00 AM EDT completed eCW1 ([facility]) influenza, recombinant, quadrIvalent,injectable, prese rvative free 04/27/2020 08:36:00 AM EDT completed eCW1 ([facility]) influenza, recombinant, quadrIvalent,injectable, prese rvative free 04/27/2020 08:36:00 AM EDT completed eCW1 ([facility]) influenza, recombinant, quadrIvalent,injectable, prese rvative free 04/27/2020 08:36:00 AM EDT completed eCW1 ([facility]) Zoster 50mcg/0.5mL (Shingrix) 08/23/2019 07:50:00 AM EST completed eCW1 ([facility]) Zoster 50mcg/0.5mL (Shingrix) 08/23/2019 07:50:00 AM EST completed eCW1 ([facility]) Zoster 50mcg/0.5mL (Shingrix) 08/23/2019 07:50:00 AM EST completed eCW1 ([facility]) Zoster 50mcg/0.5mL (Shingrix) 08/23/2019 07:50:00 AM EST completed eCW1 ([facility]) Zoster 50mcg/0.5mL (Shingrix) 08/23/2019 07:50:00 AM EST completed eCW1 ([facility]) Zoster 50mcg/0.5mL (Shingrix) 08/23/2019 07:50:00 AM EST completed eCW1 ([facility]) Zoster 50mcg/0.5mL ([facility]) 08/23/2019 07:50:00 AM EST completed eCW1 ([facility]) Zoster 50mcg/0.5mL ([facility]) 08/23/2019 07:50:00 AM EST completed eCW1 ([facility]) VARICELLA-ZOSTER VIRUS GLYCOPROTEIN E,REC/AS01B ADJUVA NT/PF 08/21/2019 12:00:00 AM EST completed [facility] Medications Medication Brand Name Start Date Product Form Dose Route Admi nistrative Instructions Pharmacy Instructions Status Indications Reaction Description Data Source(s) Acetaminophen 325 MG / Oxycodone Hydroch loride 5 MG Oral Tablet [Percocet] Percocet 5-325 MG Percocet 5-325 MG 08/01/2020 12:00:00 AM EST 1 .0 {tablet_as_needed} active Percocet 5-32 5 MG eCW1 ([facility]) Ibuprofen 800 MG Oral Tablet Ibuprofen 800 MG 08/01/2020 12:00:[address] active Ibuprofen 800 MG eCW1 ([facility]) 300 mg 05/04/2020 12:00:00 AM EDT capsule 2 TAKE TWO CAPSULES BY MOUTH ONE HOUR PRIOR TO DENTAL APPOINTMENT TAKE TWO CAPSULES BY MOUTH ONE HOUR PRIO R TO DENTAL APPOINTMENT SOLD: 05/04/2020 [facility] 5 mg 09/22/2019 12:00:00 AM EDT tablet 15 TAKE 1 TABLET BY MOUTH EVERY 6 HOURS NEEDED MAXIMUM DAILY DOSE = 4 TAKE 1 TABLET BY MOUTH EVERY 6 HOURS NEEDED MAXIMUM DAILY DOSE = 4 SOLD: 09/22/2019 [facility] 20 mg 09/22/2019 12:00:00 AM EDT tablet 10 TAKE 2 TABLETS BY MOUTH ONCE A DAY TAKE 2 TABLETS BY MOUTH ONCE A DAY SOLD: 09/22/2019 [facility] Ranitidine 150 MG Oral Capsule RaNITidine HCl 150MG Or al Capsule RaNITidine HCl 150MG Oral Capsule 06/22/2017 12:00:00 AM EST 1 aborted ranitidine 150 MG Oral Capsule RADHA (Herber Olivares MD [facility]) Insurance Providers Payer name Policy type / Coverage type Policy ID Covered green party ID Covered green party's relationship to cruz Policy Cruz Plan Information [facility] [id number] SP [id number] MEDICARE [id number] SP [id number] [facility] [id number] SP [id number] [facility] [id number] SP [id number] [facility] ([place] - [facility] Other 0 Self 0 Medicare Part B [facility] Other 0 Se lf 0 DME Jurisdiction A AZIC C [id number] SELF [id number] [place] Plan F [id number] SELF [id number] Medicare C [id number] SELF [id number] M96 BCBS [place] DIV [id number] SP [id number] [facility] [id number] S [id number] BCBS [place] [id number] S [id number] [place] [id number] S [id number] [employer] [id number] S [id number] [facility] [id number] S [id number] BCBS [place] [id number] S [id number] [facility] [id number] S [id number] BCBS [place] [id number] S [id number] [employer] [id number] S [id number] [place]IC[place] [id number] S [id number] [facility] Employees ([place] - [facility] Other 0 Self 0 Medicare Part B [facility] Other 0 Se lf 0 ANSI-Medicare Part B [id number] ANSI-Commercial [id number] ANSI-Commercial [id number] ANSI-Medicare Part B [id number] ANSI-Medicare Part B [id number] ANSI-Commercial [id number] ANSI-Medicare Part B [id number] ANSI-Commercial [id number] ANSI-Medicare Part B [id number] ANSI-Commercial [id number] EXCE[place]US BCBS [id number] Vanita YLS [id number] MEDICARE [id number] Vanita [id number] EXCELLUS BCBS PI PI MEDICARE PI PI ANSI-Commercial [id number] ANSI-Medicare Part B [id number] ANSI-Medicare Part B [id number] ANSI-Commercial [id number] DME Jurisdiction A NHIC C [id number] SELF [id number] MEDICARE [id number] SP [id number] ANSI-Commercial [id number] ANSI-Medicare Part B [id number] [place] Plan[facility] Part B [id number] Self [id number] Medicare (Part B) Medicare Primary [id number] Self [id number] [place] Plan-[facility] Part B [id number] Self [id number] Medicare (Part B) Medicare Primary [id number] Self [id number] ANSI-Commercial [id number] ANSI-Medicare Part B [id number] ANSI-Commercial [id number] ANSI-Medicare Part B [id number] BLUE CROSS [id number] S [id number] [facility] [id number] S [id number] MCRB [id number] S [id number] MEDICARE [id number] S [id number] Medicare C [id number] SELF [id number] M96 ANSI-Commercial [id number] ANSI-Medicare Part B [id number] ANSI-Medicare Part B [id number] ANSI-Commercial [id number] ANSI-Medicare Part B [id number] ANSI-Commercial [id number] ANSI-Commercial [id number] ANSI-Medicare Part B [id number] ANSI-Commercial [id number] ANSI-Medicare Part B [id number] [facility] UNAVAILABLE S UNAVAILABLE [facility] [id number] S [id number] BCBS [place] [id number] S [id number] [place]IC[place] [id number] S [id number] ANSI-Medicare Part B [id number] ANSI-Commercial [id number] ANSI-Medicare Part B [id number] ANSI-Commercial [id number] ANSI-Medicare Part B [id number] ANSI-Commercial [id number] ANSI-Commercial [id number] ANSI-Medicare Part B [id number] ANSI-Commercial [id number] ANSI-Medicare Part B [id number] ANSI-Commercial [id number] ANSI-Medicare Part B [id number] ANSI-Medicare Part B [id number] ANSI-Commercial [id number] MEDICARE [id number] A ANSI-Medicare Part B [id number] ANSI-Commercial [id number] ANSI-Medicare Part B [id number] ANSI-Commercial [id number] ANSI-Medicare Part B [id number] ANSI-Commercial [id number] MEDICARE C [id number] S [id number] A [facility] EMPIRE ANGIE DIV [id number] SP [id number] [place]ICARE [place] [facility] [id number] S [id number] [facility] COMM UNAVAILABLE S UNAVAILABLE [facility] EMPIRE BC [id number] S [id number] Problems, Conditions, and Diagnoses Code Display Name Description Problem Type Effective Dates Data Source(s) N81.10 Midline cystocele Pelvic organ prolapse quantifi cation stage 3 cystocele Problem 07/27/2020 12:00:00 AM EST eCW1 ([facility]) N81.4 [id number] Uterine prolapse Problem 07/23/2020 12:00:00 AM EST eCW1 ([facility]) N81.10 [id number] Vaginal prolapse Problem 07/23/2020 12:00:00 AM EST eCW1 ([facility]) K21.9 [id number] Gastro-esophageal reflux disease without esophagitis Problem 05/11/2020 12:00:00 AM EST eCW1 ([facility]) Y92.[address] or not applicable UNSPECIFIED PL[address] OR NOT APPLICABLE Diagnosis 09/22/2019 02:00:00 PM [facility] Y99.8 Other external cause status OTHER EXTERNAL CAUSE STATU S Diagnosis 09/22/2019 02:00:00 PM [facility] Y93.9 Activity, unspecified ACTIVITY, UNSPECIFIED Diagnosis 09/22/2019 02:00:00 PM [facility] S16.1XXA Strain of muscle, fascia and tendon at n ravindra level, initial encounter STRAIN OF MUSCLE, FASCIA AND TENDON AT NECK LEVEL, Diagnosis 02:00:00 PM [facility] M54.2 Cervicalgia CERVICALGIA Diagnosis 09/22/2019 02:00:00 PM [facility] Surgeries/Procedures Procedure Description Date Indications Data Source(s) Intermediate Eye Exam Established Patient Intermediate Eye Exam Established Patient 06/22/2020 12:00:00 AM EST RADHA (Jim josesito Olivares MD [facility]) Immunization: Flublok Quadrivalent (18 years & older) 0.5mL IM (Influenza) 04/27/2020 12:00:00 AM EDT eCW1 ([facility]) Office Visit, Est Pt., Level 3 FC 11/21/2019 12:00:00 AM EDT eCW1 ([facility]) Office Visit, Est Pt., Level 4 PC 11/21/2019 12:00:00 AM EDT eCW1 ([facility]) Results ID Date Data Source [id number] 08/14/2020 09:30:00 AM EST [facility] Name Value Range Interpretation Code Description Data Leticia rce(s) Supporting Document(s) SARS coronavirus 2 RNA Not Detected [facility] [place] This lab was ordered by [facility] and reported by [facility]. ID Date Data Source [id number] 02/05/2020 04:26:45 PM EDT [facility], PCName: Susan PuentesOB: 1950Provider: Neli Alba: 01/31/2020 Assessment Aftercare following left hip joint replacement surgery (V54.81,V43.64) (Z47.1,Z96.642) Chief complaint: 1 year status post left total hip arthroplasty 01/21/2019907798-jvkv-ndu retired patient of Dr. Orestes Reynaga doing well. No pain no swelling no instability.General: Alert and oriented x 3, no distress, normal mood and affect. Skin: warm and dry.Left hip: Skin warm and dry. No leg length discrepancy or edema. Sensation is intact, post tibial and pedal pulses are 2+. 5/5 strength. ROM: 120 degrees of flexion, internal and external rotation is 40 degrees.X-rays: AP pelvis, and lateral of the left hip ordered, obtained and interpreted by me today shows components in good position without signs of loosening or wear.Impression: 1 year status post left total hip arthroplastyPlan: Patient is doing well. Activities as tolerated except for high impact activities. Follow-up as needed Plan X-Ray I Hip Pelvis - 1 view (XRays were ordered, obtained and interpreted today in theoffice. Indication: pain/dysfunction.); Status:Complete; Done: [id number] Perform:SOS29; Due:[id number]; Last Updated By:Fran Gallegos; 01/31/2020 3:02:33 PM;Ordered; For:Primary localized osteoarthritis of left hip; Ordered By:Jony Alba;Weight Bearing Status : Weight bearingLaterality: : Left This document was dictated and electronically signed using MovieLine software. A reasonable attempt at proof reading has been made to minimize errors. Please call with any questions. Signatures Electronically signed by : David Diaz; Jan 31 2020 3:11PM EST (Author) Electronically signed by : Stanton Reynaga M.D.; Feb 05 2020 4:26PM EST Name Value Range Interpretation Code Description Data Leticia rce(s) Supporting Document(s) ID Date Data Source [id number] 09/22/2019 07:16:00 PM EDT [facility] Patient: SUSAN BASS Observation R e[facility] - [facility] HospitalVisit[facility]: [id number] [place] [address] [phone], FRegistration Date/Time: 09/22/2019 13:23 Weight:73 kg (S). Height/Length:62 inches (S). BMI:29.5 PAST HISTORYProblems:Arthritis.GI Bleeding.Hypercholesterolemia.Hypertension.UTI - Urinary Tract Infection.Hypothyroidism.Near Syncope.Palpitations. Additional Surgeries:Adenoidectomy.Appendectomy.Cholecystectomy.Colonoscopy.Dilatation & Curettage.Endoscopy.Hernia Repair.Hip Surgery.Left rotator cuff.Right foot.Tons illectomy. Medications:Cyclobenzaprine HCl Oral, as needed, last dose 0600 this am.Aldactone Oral 100 mg, daily, last dose yesterday.Aspirin Adult Low Dose Oral (Tablet Delayed Release 81 mg) 1 tablet, daily, last dose this am.Avapro Oral 150 mg, daily, last dose yesterday.Celecoxib Oral 200 mg, daily, last dose today.Flonase Allergy Relief Nasal 2 sprays, 2x a day as needed.Hydrocodone-Acetaminophen Oral (Tablet 10-325 mg) 1/2 tablet, as needed, last dose 0100 this am.Probiotic Oral 1 tablet, daily, last dose yesterday.Restasis Ophthalmic (Emulsion 0.05 %), 2x a day, last dose to day.Synthroid Oral 75 mcg, daily, last dose today. Allergies:erythromycin base. Side-Effect(nausea, vomiting)Monistat.(itching)Penicillins.(rash)Scopolamine. (adhesive caused rash)Sulfa (Sulfonamide Antibiotics).(angioedema)Tetracyclines. Side- Effect(nausea, vomiting). FAMILY HISTORYNegative. No significant family medical history. (Electronically signed by David Briceno 09/22/2019 19:10) Name Value Range Interpretation Code Description Data Leticia rce(s) Supporting Document(s) ID Date Data Source [id number] 08/01/2019 03:47:17 PM EST [facility], PCName: Susan Mcwilliams: 1950Provider: Mirlande Orourke: 07/31/2019 Assessment Aftercare following left hip joint replacement surgery (V54.81,V43.64) (Z47.1,Z96.642) Pt is here 6 months s/p left total hip total hip. Pt is doing well. No complaints.Exam: The patient is awake, alert and oriented x3. The patient has appropriate mood and affect. The upper extremities have normal strength, sensation, reflexes, muscle tone and coordination. There are no skin lesions in either upper extremity. There are normal pulses in both wrists. Exam of the left hip: Flexion to 110, extension to 0. IR and ER 30, Abduction 35, Adduction 34. Leg lengths are equal.Impression: 6 months s/p left total 01/21/19.Plan: Continue a home exercise program. As long as the patient continues to improve, f/u at their 1 year postop appointment. Signatures Electronically signed by : David Miranda; Jul 31 2019 10:35AM EST (Author) Electronically signed by : Stanton Reynaga M.D.; Aug 01 2019 3:47PM EST Name Value Range Interpretation Code Description Data Leticia rce(s) Supporting Document(s) Procedure Social History Code Duration Value Status Description Data Source(s ) Smoking 07/23/2020 12:00:00 AM EST Never Smoker completed Never S moker eCW1 ([facility]) Smoking 07/23/2020 12:00:00 AM EST Never Smoker completed Never S moker eCW1 ([facility]) Smoking 07/23/2020 12:00:00 AM EST Never Smoker completed Never S moker eCW1 ([facility]) Smoking 06/24/2020 12:00:00 AM EST Never Smoker completed Never S moker eCW1 ([facility]) Smoking 06/24/2020 12:00:00 AM EST Never Smoker completed Never S moker eCW1 ([facility]) Smoking 06/22/2020 09:34:03 AM EST Never smoked tobacco (findi ng) completed Never smoked tobacco (finding) RADHA (Herber Olivares MD [facility]) Smoking 05/11/2020 12:00:00 AM EST Never Smoker completed Never S moker eCW1 ([facility]) Smoking 11/21/2019 12:00:00 AM EDT Never Smoker completed Never S moker eCW1 ([facility]) Smoking 11/21/2019 12:00:00 AM EDT Never Smoker completed Never S moker eCW1 ([facility]) Vital Signs ID Date Data Source UNK Name Value Range Interpretation Code Description Data Source(s) Diastolic blood pressure 76 mm[Hg] 76 mm[Hg] eCW1 ([facility]) Systolic blood pressure 148 mm[Hg] 148 mm[Hg] e CW1 ([facility]) Body mass index (BMI) [Ratio] 28.79 kg/m2 28.79 kg/m2 W1 ([facility]) Body height 62.5 [in_i] 62.5 [in_i] eCW[facility] Body weight 160 [lb_av] 160 [lb_av] eCW1 ([facility]) Diastolic blood pressure 81 mm[Hg] 81 mm[Hg] eCW1 ([facility]) Systolic blood pressure 148 mm[Hg] 148 mm[Hg] e CW1 ([facility]) Body temperature 98.2 [degF] 98.2 [degF] eCW1 ( [facility]) Respiratory rate 16 /min 16 /min eCW1 ([facility]) Heart rate 77 /min 77 /min eCW1 ([facility]) Body mass index (BMI) [Ratio] 28.94 kg/m2 28.94 kg/m2 eCW1 ([facility]) Body height 62.5 [in_i] 62.5 [in_i] eCW1 ([facility]) Body weight 160.8 [lb_av] 160.8 [lb_av] eCW1 ([facility]) Diastolic blood pressure 76 mm[Hg] 76 mm[Hg] eCW1 ([facility]) Systolic blood pressure 148 mm[Hg] 148 mm[Hg] e CW1 ([facility]) Body mass index (BMI) [Ratio] 29.33 kg/m2 29.33 kg/m2 eCW1 ([facility]) Body height 62.5 [in_i] 62.5 [in_i] eCW1 ([facility] Body weight 163 [lb_av] 163 [lb_av] eCW1 ([facility]) Diastolic blood pressure 78 mm[Hg] 78 mm[Hg] eCW1 ([facility]) Systolic blood pressure 150 mm[Hg] 150 mm[Hg] e CW1 ([facility]) Body temperature 98.2 [degF] 98.2 [degF] eCW1 ( [facility]) Respiratory rate 16 /min 16 /min eCW1 ([facility]) Heart rate 65 /min 65 /min eCW1 ([facility]) Body mass index (BMI) [Ratio] 29.84 kg/m2 29.84 kg/m2 W1 ([facility]) Body height [in_i] eCW1 ([facility]) Body weight 165.8 [lb_av] 165.8 [lb_av] eCW1 ([facility]) Diastolic blood pressure 72 mm[Hg] 72 mm[Hg] eCW1 ([facility]) Systolic blood pressure 148 mm[Hg] 148 mm[Hg] e CW1 ([facility]) Body temperature 98.4 [degF] 98.4 [degF] eCW1 ( [facility]) Respiratory rate 16 /min 16 /min eCW1 ([facility]) Heart rate 69 /min 69 /min eCW1 ([facility]) Body mass index (BMI) [Ratio] 29.36 kg/m2 29.36 kg/m2 eCW1 ([facility]) Body height [in_us] eCW1 ([facility]) Body weight Measured 163.12 [lb_av] 163.12 [lb_ av] eCW1 ([facility]) Patient Treatment Plan of Care Planned Activity Planned Date Details Description Data Source (s) Ibuprofen 800 MG Oral Tablet 08/01/2020 12:00:00 AM EST eCW1 ([facility]) Acetaminophen 325 MG / Oxycodone Hydrochloride 5 MG Or al Tablet [Percocet] 08/01/2020 12:00:00 AM EST eCW1 ([facility])
[2020-08-19 07:00] LABS: HEMATOCRIT 42.9 % (36.0-47.0); HEMOGLOBIN 13.2 g/dl (12.0-15.5); MEAN CORPUSCULAR HEMOGLOBIN 30.1 pg (27.0-33.0); MEAN CORPUSCULAR HGB CONC 30.8 g/dl (32.0-36.5); MEAN CORPUSCULAR VOLUME 97.7 fl (80.0-96.0); PLATELET COUNT, AUTOMATED 231 10^3/uL (150-450); RED BLOOD COUNT 4.39 10^6/uL (4.00-5.40); WHITE BLOOD COUNT 6.1 10^3/uL (4.0-10.0)
[2020-08-19] MEDS ORDERED: BUPIVACAINE/EPIN 0.25% 30 ML VIAL As Ordered ONE (07:07)
[2020-08-19] MEDS ORDERED: CIPROFLOXACIN 400 MG in IV 1 EA IV ONE (07:15)
[2020-08-19] MEDS ORDERED: propofoL 200 MG/20 ML VIAL As Ordered ONE (07:15)
[2020-08-19] MEDS ORDERED: MIDAZOLAM INJ 2MG/2ML VIAL (J2250 PER 1MG) As Ordered ONE (07:15)
[2020-08-19] MEDS ORDERED: fentaNYL 100 MCG/2 ML INJECTION (J3010) As Ordered ONE (07:15)
[2020-08-19] MEDS ORDERED: ROCURONIUM BROMIDE 50 MG/5 ML VIAL As Ordered ONE (07:15)
[2020-08-19] MEDS ORDERED: dexameTHASONE 4 MG/ML 1ML VIAL (J1100 PER 1MG) As Ordered ONE (07:15)
[2020-08-19] MEDS ORDERED: LIDOCAINE 2% 100MG/5ML SDV (FOR ANES.) As Ordered ONE (07:15)
[2020-08-19] MEDS ORDERED: ONDANSETRON 4MG/2ML VIAL As Ordered ONE (07:15)
[2020-08-19] MEDS ORDERED: metroNIDAZOLE 500 MG in IV 1 EA IV ONE (07:30)
[2020-08-19] MEDS ORDERED: metroNIDAZOLE 500 MG in IV 1 EA IV SCH (07:30)
[2020-08-19] MEDS ORDERED: KETOROLAC 60MG 2ML VIAL As Ordered ONE (07:57)
[2020-08-19] MEDS ORDERED: ACETAMINOPHEN 1000MG 100ML IV BTL (OFIRMEV) (J0131 PER 10MG) As Ordered ONE (07:57)
[2020-08-19] MEDS ORDERED: ePHEDrine SULFATE 25 MG/5 ML(5MG/ML) SYRINGE As Ordered ONE (08:08)
[2020-08-19] MEDS ORDERED: METOCLOPRAMIDE INJ 10MG/2ML VIAL (J2765 PER 1) IV PRN (09:00)
[2020-08-19] MEDS ORDERED: oxyCODONE 5MG TAB PO PRN (09:00)
[2020-08-19] MEDS ORDERED: ONDANSETRON 4MG/2ML VIAL IV PRN (09:00)
[2020-08-19] MEDS ORDERED: fentaNYL 100 MCG/2 ML INJECTION (J3010) IV PRN (09:00)
[2020-08-19] MEDS ORDERED: LR 1,000 ML IV SCH (09:00)
[2020-08-19] MEDS ORDERED: PERCOCET 5MG/325MG TAB PO PRN (09:15)
[2020-08-19 10:30] VITALS: BP 143/66
[2020-08-19] MEDS ORDERED: KETOROLAC 30 MG/ML 1ML VIAL IV SCH (14:00)
--- NOTE | 2020-08-19 14:10 | ROOPDOC ---
[facility] Report Of Operation Report of Operation DATE OF PROCEDURE: 08/19/20 PREOPERATIVE DIAGNOSIS: Cystocele. POSTOPERATIVE DIAGNOSIS: Cystocele. PROCEDURE PERFORMED: 1. Anterior colporrhaphy SURGEON: Yuliya Mueller MD RECRUITMENT ASSISTANT: Everette Hampton MD ANESTHESIA: General. ESTIMATED BLOOD LOSS: 5 mL. INTRAVENOUS FLUIDS: 900 mL of Lactated Ringer's solution. URINE OUTPUT: 200 mL. PREOPERATIVE ANTIBIOTICS: 400 mg of ciprofloxacin and 500 mg of Flagyl OPERATIVE FINDINGS: Large midline cystocele SPECIMENS: Vaginal mucosa. DESCRIPTION OF OPERATION: After informed consent was obtained and written consent was reviewed, the patient was brought to the operating room where general anesthesia was obtained. She was then placed in lithotomy position, was prepped and draped in a normal sterile fashion. A time out in the operating room was then performed identifying the patient, procedure to be performed, as well as drug allergies. Next, a Gaffney retractor as well as a right angle retractor were used to inspect the cystocele. A midline anterior defect was appreciated. Allis clamps were then placed in the midline up the level of the bladder neck. The mucosa was then injected with 0.25% Marcaine for hydrodissection. A midline incision was made and the mucosa was dissected away from the submucosa. Next, the endopelvic fascia was then plicated with #2-0 Vicryl and put three separate sutures. The excess vaginal mucosa was then trimmed and the vaginal mucosa was closed in the midline using #2-0 Vicryl. The patient was then taken out of lithotomy position, was awakened from general anesthesia and taken to recovery in stable condition. Dr. Hampton, my surgical instrument repair specialist, played an essential role in the operation. He assisted with all aspect of the surgery. YULIYA MUELLER MD. Aug 19, 2020 14:10
== END 2020-08-19 10:47 | disposition home or self-care (01) ==
LOC: M SDC 06:04
PROVIDERS: ATTEND Obstetrics & Gynecology
DX: N81.11 Cystocele, midline (principal); I10 Essential (primary) hypertension; D64.9 Anemia, unspecified; E03.9 Hypothyroidism, unspecified; Z79.899 Other long term (current) drug therapy; Z88.0 Allergy status to penicillin; Z88.2 Allergy status to sulfonamides; Z88.8 Allergy status to other drugs, medicaments and biological substances
CPT/HCPCS: 36415; 57240; 85027; 86850; 86900; 86901; 88302; J0131; J0744; J1100; J1885; J2250; J2405; J3010

== ENCOUNTER → 2020-12-08 | Outpatient (REF) | payer MEDICARE, OTHER ==
[~2020-12-08] MED LIST changes: -LIDOCAINE 1% MDV 20ML VIAL SQ PRN; -LR 1,000 ML IV ONE
[2020-12-08 13:00] LABS: HEMOGLOBIN A1c 4.9 %
[2020-12-08 13:27] LABS: BLOOD UREA NITROGEN 23 MG/DL (7-18); CALCIUM LEVEL 9.9 MG/DL (8.8-10.2); CARBON DIOXIDE LEVEL 27 MEQ/L (21-32); CHLORIDE LEVEL 107 MEQ/L (98-107); CREATININE FOR GFR 0.85 MG/DL (0.55-1.30); GLOMERULAR FILTRATION RATE > 60.0 (>39); GLUCOSE, FASTING 91 MG/DL (70-100); POTASSIUM SERUM 4.6 MEQ/L (3.5-5.1); SODIUM LEVEL 140 MEQ/L (136-145); THYROID STIMULATING HORMONE 0.375 uIU/ML (0.358-3.740)
== END ==
LOC: M SFHCCLAY 07:45
PROVIDERS: ATTEND Family Medicine
DX: R73.01 Impaired fasting glucose (principal); I10 Essential (primary) hypertension; E03.9 Hypothyroidism, unspecified

== ENCOUNTER → 2020-12-30 | Outpatient (CLI) | payer MEDICARE, BC ==
--- NOTE | 2020-12-30 10:06 | REPMRS ---
Patient History The patient states she has not had a clinical breast exam in over a year. Family history of breast cancer under age 50 in sister. Took estrogen for 3 years. No breast complaints today Patient signed the MRS sheet 1st covid vaccine 09/02/20-right arm-Pfizer 2nd covid vaccine 09/23/20-right arm Priors on PACS Patient Identification Verified Digital Woman Screen Mammo: December 30, 2020 - Exam #: [id number] Bilateral CC and MLO view(s) were taken. Technologist: Kaylin Saucedo, Technologist Prior study comparison: December 30, 2019, bilateral digital woman screen mammo performed at [facility] [place]. December 19, 2018, bilateral digital woman screen mammo performed at [facility] [place]. November 23, 2017, digital woman screen mammo performed at [facility] [place]. FINDINGS: There are scattered fibroglandular densities. The Volpara volumetric breast density category is:B. There has been no change in the appearance of the mammogram from the prior studies. There is a mild amount of scattered fibroglandular density which is fairly symmetric. There is no interval development of dominant mass, architectural distortion, or grouped microcalcification suggestive of malignancy. 3-D tomosynthesis shows no additional findings. Assessment: BI-RADS/ACR category 1 mammogram. Negative Mammogram. Recommendation Routine screening mammogram of both breasts in 1 year (for women over age 40). This patient's [facility] Lifetime Breast Cancer RIsk is estimated at 11.3 %. This mammogram was interpreted with the aid of an FDA-approved computer-aided dectection system. Electronically Signed By: Trenton Mcnally MD 12/30/20 1448
== END ==
LOC: M WHC 09:19
PROVIDERS: ATTEND Family Medicine
DX: Z12.31 Encounter for screening mammogram for malignant neoplasm of breast (principal); Z80.3 Family history of malignant neoplasm of breast; Z92.23 Personal history of estrogen therapy

== ENCOUNTER → 2021-01-06 | Outpatient (REF) | payer MEDICARE, BC, OTHER | LOC: M SFHCWAGY 09:56 | PROVIDERS: ATTEND Nurse Practitioner Women's Health | DX: R30.0 Dysuria (principal) | CPT/HCPCS: 87086; G0463 ==

== ENCOUNTER → 2021-06-28 | Outpatient (REF) | payer MEDICARE, OTHER ==
[2021-06-28 12:09] LABS: BASO % 0.9 % (0.0-1.0); EOS # 0.1 10^3/uL (0.0-0.5); EOS % 2.8 % (0.0-3.0); HEMATOCRIT 42.8 % (36.0-47.0); HEMOGLOBIN 13.3 g/dl (12.0-15.5); LYMPH # 1.5 10^3/uL (1.5-5.0); MEAN CORPUSCULAR HEMOGLOBIN 30.6 pg (27.0-33.0); MEAN CORPUSCULAR HGB CONC 31.1 g/dl (32.0-36.5); MEAN CORPUSCULAR VOLUME 98.4 fl (80.0-96.0); MONO # 0.3 10^3/uL (0.0-0.8); MONO % 7.3 % (2.0-8.0); NEUTROPHILS # 2.6 10^3/uL (1.5-8.5); NEUTROPHILS % 55.8 % (36.0-66.0); PLATELET COUNT, AUTOMATED 210 10^3/uL (150-450); RED BLOOD COUNT 4.35 10^6/uL (4.00-5.40); WHITE BLOOD COUNT 4.7 10^3/uL (4.0-10.0)
[2021-06-28 12:43] LABS: HEMOGLOBIN A1c 5.1 %
[2021-06-28 13:02] LABS: ALT/SGPT 25 U/L (12-78); BILIRUBIN,TOTAL 0.5 MG/DL (0.2-1.0); BLOOD UREA NITROGEN 19 MG/DL (7-18); CALCIUM LEVEL 9.9 MG/DL (8.8-10.2); CARBON DIOXIDE LEVEL 28 MEQ/L (21-32); CHLORIDE LEVEL 108 MEQ/L (98-107); CREATININE FOR GFR 0.86 MG/DL (0.55-1.30); GLOMERULAR FILTRATION RATE > 60.0 (>39); GLUCOSE, FASTING 96 MG/DL (70-100); IRON (FE) 63 UG/DL (50-170); POTASSIUM SERUM 4.9 MEQ/L (3.5-5.1); SODIUM LEVEL 141 MEQ/L (136-145); THYROID STIMULATING HORMONE 0.559 uIU/ML (0.358-3.740); TOTAL PROTEIN 6.8 GM/DL (6.4-8.2)
== END ==
LOC: M SFHCCLAY 08:22
PROVIDERS: ATTEND Family Medicine
DX: E03.9 Hypothyroidism, unspecified (principal); R73.01 Impaired fasting glucose; E78.2 Mixed hyperlipidemia; D64.9 Anemia, unspecified

== ENCOUNTER → 2021-07-01 | Outpatient (REF) | payer MEDICARE, OTHER ==
[2021-07-01 16:39] LABS: C REACTIVE PROTEIN QUANTITATIV < 0.30 MG/DL (0.00-0.30); URIC ACID 4.9 MG/DL (2.6-6.0)
[2021-07-05 21:09] LABS: ANA (HEP2) Positive (.); CYCLIC CITRULLINATED PEPTIDE 3 units (0-19); Lyme Disease IgG/IgM Antibodie <0.91 ISR (0.00-0.90); Lyme Disease IgM Ab Quantitati <0.80 index (0.00-0.79)
== END ==
LOC: M SFHCCLAY 11:49
PROVIDERS: ATTEND Family Medicine
DX: M25.462 Effusion, left knee (principal)

== ENCOUNTER → 2021-12-29 | Outpatient (REF) | payer MEDICARE, OTHER ==
[2021-12-29 11:29] LABS: BASO % 0.6 % (0.0-1.0); EOS # 0.2 10^3/uL (0.0-0.5); HEMATOCRIT 41.5 % (36.0-47.0); LYMPH # 1.6 10^3/uL (1.5-5.0); LYMPH % 29.5 % (24.0-44.0); MEAN CORPUSCULAR HEMOGLOBIN 30.3 pg (27.0-33.0); MEAN CORPUSCULAR HGB CONC 31.3 g/dl (32.0-36.5); MEAN CORPUSCULAR VOLUME 96.7 fl (80.0-96.0); MONO # 0.4 10^3/uL (0.0-0.8); MONO % 6.8 % (2.0-8.0); NEUTROPHILS # 3.3 10^3/uL (1.5-8.5); NEUTROPHILS % 59.9 % (36.0-66.0); PLATELET COUNT, AUTOMATED 233 10^3/uL (150-450); RED BLOOD COUNT 4.29 10^6/uL (4.00-5.40); WHITE BLOOD COUNT 5.4 10^3/uL (4.0-10.0)
[2021-12-29 12:14] LABS: BLOOD UREA NITROGEN 21 MG/DL (7-18); CREATININE FOR GFR 0.91 MG/DL (0.55-1.30); GLOMERULAR FILTRATION RATE > 60.0 (>39); GLUCOSE, FASTING 102 MG/DL (70-100)
[2021-12-29 12:15] LABS: ALBUMIN 3.8 GM/DL (3.2-5.2); ALT/SGPT 26 U/L (12-78); BILIRUBIN,TOTAL 0.5 MG/DL (0.2-1.0); CALCIUM LEVEL 10.6 MG/DL (8.8-10.2); CARBON DIOXIDE LEVEL 27 MEQ/L (21-32); CHLORIDE LEVEL 109 MEQ/L (98-107); CHOLESTEROL LEVEL 254 MG/DL (<200); HDL CHOLESTEROL 109 MG/DL (>40); IRON (FE) 81 UG/DL (50-170); LDL CHOLESTEROL 134 MG/DL (<100); NON-HDL-C 145 MG/DL; POTASSIUM SERUM 4.7 MEQ/L (3.5-5.1); SODIUM LEVEL 141 MEQ/L (136-145); THYROID STIMULATING HORMONE 0.866 uIU/ML (0.358-3.740); TOTAL PROTEIN 6.5 GM/DL (6.4-8.2); TRIGLYCERIDES LEVEL 57 MG/DL (<150)
== END ==
LOC: M SFHCCLAY 08:29
PROVIDERS: ATTEND Family Medicine
DX: E03.9 Hypothyroidism, unspecified (principal); E78.2 Mixed hyperlipidemia; R73.01 Impaired fasting glucose; K21.9 Gastro-esophageal reflux disease without esophagitis; I10 Essential (primary) hypertension; Z87.19 Personal history of other diseases of the digestive system; Z79.899 Other long term (current) drug therapy

== ENCOUNTER → 2022-02-02 | Outpatient (CLI) | payer MEDICARE, BC, OTHER | LOC: M WHC 15:24 | PROVIDERS: ATTEND Family Medicine | DX: Z12.31 Encounter for screening mammogram for malignant neoplasm of breast (principal); Z80.3 Family history of malignant neoplasm of breast ==

== ENCOUNTER → 2022-07-07 | Outpatient (REF) | payer MEDICARE, OTHER ==
[2022-07-07 12:07] LABS: BASO % 0.4 % (0.0-1.0); EOS # 0.2 10^3/uL (0.0-0.5); EOS % 2.2 % (0.0-3.0); HEMATOCRIT 40.9 % (36.0-47.0); HEMOGLOBIN 12.8 g/dl (12.0-15.5); LYMPH # 1.1 10^3/uL (1.5-5.0); MEAN CORPUSCULAR HEMOGLOBIN 31.2 pg (27.0-33.0); MEAN CORPUSCULAR HGB CONC 31.3 g/dl (32.0-36.5); MEAN CORPUSCULAR VOLUME 99.8 fl (80.0-96.0); MONO # 0.5 10^3/uL (0.0-0.8); MONO % 7.2 % (2.0-8.0); NEUTROPHILS # 4.9 10^3/uL (1.5-8.5); NEUTROPHILS % 72.9 % (36.0-66.0); PLATELET COUNT, AUTOMATED 219 10^3/uL (150-450); WHITE BLOOD COUNT 6.7 10^3/uL (4.0-10.0)
[2022-07-07 12:39] LABS: FOLATE 16.68 NG/ML (>5.4)
[2022-07-07 12:40] LABS: THYROID STIMULATING HORMONE 0.545 uIU/ML (0.55-4.78)
[2022-07-07 13:29] LABS: HEMOGLOBIN A1c 4.9 % (4.0-6.0)
== END ==
LOC: M SFHCCLAY 08:04
PROVIDERS: ATTEND Family Medicine
DX: G62.9 Polyneuropathy, unspecified (principal); E03.9 Hypothyroidism, unspecified; I10 Essential (primary) hypertension; Z79.899 Other long term (current) drug therapy

== ENCOUNTER → 2023-01-04 | Outpatient (REF) | payer MEDICARE, OTHER ==
[~2023-01-04] MED LIST changes: +FLUT50SP17 NARES; -FLUTISP NARES
[2023-01-04 12:05] LABS: ALBUMIN 3.9 G/DL (3.2-5.2); ALKALINE PHOSPHATASE 64 U/L (46-116); ALT/SGPT 17 U/L (7.0-40); AST/SGOT 12 U/L (<34); BILIRUBIN,TOTAL 0.6 MG/DL (0.3-1.2); BLOOD UREA NITROGEN 23 MG/DL (9-23); CALCIUM LEVEL 10.1 MG/DL (8.3-10.6); CARBON DIOXIDE LEVEL 26 MMOL/L (20-31); CHLORIDE LEVEL 104 MMOL/L (98-107); CHOLESTEROL LEVEL 252 MG/DL (<200); CHOLESTEROL RISK RATIO 3.03 (<5); CREATININE FOR GFR 0.88 MG/DL (0.55-1.30); GLOMERULAR FILTRATION RATE > 60.0 (>39); GLUCOSE, FASTING 93 MG/DL (74-106); HDL CHOLESTEROL 82.9 MG/DL (>40); LDL CHOLESTEROL 156.3 MG/DL (<100); MAGNESIUM LEVEL 1.9 MG/DL (1.8-2.4); NON-HDL-C 169.1 MG/DL; POTASSIUM SERUM 4.7 MMOL/L (3.5-5.1); SODIUM LEVEL 134 MMOL/L (136-145); TOTAL PROTEIN 6.4 G/DL (5.7-8.2); TRIGLYCERIDES LEVEL 64 MG/DL (<150)
[2023-01-04 12:08] LABS: THYROID STIMULATING HORMONE 0.291 uIU/ML (0.55-4.78)
== END ==
LOC: M SFHCCLAY 07:40
PROVIDERS: ATTEND Family Medicine
DX: I10 Essential (primary) hypertension (principal); E03.9 Hypothyroidism, unspecified; K21.9 Gastro-esophageal reflux disease without esophagitis; E78.2 Mixed hyperlipidemia

== ENCOUNTER → 2023-02-10 | Outpatient (CLI) | payer MEDICARE, BC, OTHER | LOC: M WHC 10:08 | PROVIDERS: ATTEND Family Medicine | DX: Z12.31 Encounter for screening mammogram for malignant neoplasm of breast (principal) ==

== ENCOUNTER → 2023-07-11 | Outpatient (CLI) | payer MEDICARE, BC ==
[~2023-07-11] MED LIST changes: +CELE0.09 PO; -CELE1CAP9 PO; -FLUT50SP17 NARES; +FLUTISP NARES
== END ==
LOC: M CLY 11:20
PROVIDERS: ATTEND Family Medicine
DX: Z96.642 Presence of left artificial hip joint (principal)

== ENCOUNTER → 2023-07-11 | Outpatient (REF) | payer MEDICARE, BC, OTHER ==
[2023-07-11 18:28] LABS: HEMATOCRIT 40.5 % (36.0-47.0); HEMOGLOBIN 12.8 g/dl (12.0-15.5); MEAN CORPUSCULAR HEMOGLOBIN 31.4 pg (27.0-33.0); MEAN CORPUSCULAR HGB CONC 31.6 g/dl (32.0-36.5); MEAN CORPUSCULAR VOLUME 99.5 fl (80.0-96.0); PLATELET COUNT, AUTOMATED 224 10^3/uL (150-450); RED BLOOD COUNT 4.07 10^6/uL (4.00-5.40); WHITE BLOOD COUNT 10.6 10^3/uL (4.0-10.0)
[2023-07-11 18:40] LABS: ERYTHROCYTE SEDIMENTATION RATE 34 mm/hr (0-30)
[2023-07-11 18:57] LABS: THYROID STIMULATING HORMONE 0.781 uIU/ML (0.55-4.78)
[2023-07-11 18:59] LABS: ALKALINE PHOSPHATASE 77 U/L (46-116); ALT/SGPT 16 U/L (7.0-40); AST/SGOT 16 U/L (<34); BLOOD UREA NITROGEN 16 MG/DL (9-23); CALCIUM LEVEL 9.8 MG/DL (8.3-10.6); CARBON DIOXIDE LEVEL 25 MMOL/L (20-31); CHLORIDE LEVEL 105 MMOL/L (98-107); CREATININE FOR GFR 0.82 MG/DL (0.55-1.30); GLOMERULAR FILTRATION RATE > 60.0 (>39); GLUCOSE, FASTING 98 MG/DL (74-106); MAGNESIUM LEVEL 1.7 MG/DL (1.8-2.4); POTASSIUM SERUM 4.6 MMOL/L (3.5-5.1); SODIUM LEVEL 137 MMOL/L (136-145); TOTAL PROTEIN 6.8 G/DL (5.7-8.2)
== END ==
LOC: M SFHCCLAY 10:37
PROVIDERS: ATTEND Family Medicine
DX: I10 Essential (primary) hypertension (principal); R73.01 Impaired fasting glucose; E03.9 Hypothyroidism, unspecified; K21.9 Gastro-esophageal reflux disease without esophagitis; R19.7 Diarrhea, unspecified; Z96.642 Presence of left artificial hip joint

== ENCOUNTER → 2023-07-14 | Outpatient (REF) | payer MEDICARE, BC | LOC: M SFHCCLAY 16:53 | PROVIDERS: ATTEND Family Medicine | DX: R19.7 Diarrhea, unspecified (principal) ==

== ENCOUNTER → 2024-01-22 | Outpatient (REF) | payer MEDICARE, BC ==
[~2024-01-22] MED LIST changes: +IRBE150T27 PO; -IRBE150T7 PO
[2024-01-22 19:43] LABS: ALBUMIN 4.2 G/DL (3.2-5.2); ALKALINE PHOSPHATASE 63 U/L (46-116); ALT/SGPT 16 U/L (7.0-40); AST/SGOT 12 U/L (<34); BILIRUBIN,TOTAL 0.7 MG/DL (0.3-1.2); BLOOD UREA NITROGEN 20 MG/DL (9-23); CALCIUM LEVEL 10.3 MG/DL (8.3-10.6); CARBON DIOXIDE LEVEL 27 MMOL/L (20-31); CHLORIDE LEVEL 105 MMOL/L (98-107); CREATININE FOR GFR 0.82 MG/DL (0.55-1.30); GLOMERULAR FILTRATION RATE > 60.0 (>39); GLUCOSE, FASTING 87 MG/DL (74-106); POTASSIUM SERUM 4.9 MMOL/L (3.5-5.1); SODIUM LEVEL 138 MMOL/L (136-145); TOTAL PROTEIN 6.5 G/DL (5.7-8.2)
[2024-01-22 19:48] LABS: FREE T4 1.42 NG/DL (0.89-1.76); THYROID STIMULATING HORMONE 0.302 uIU/ML (0.55-4.78)
== END ==
LOC: M SFHCCLAY 10:19
PROVIDERS: ATTEND Family Medicine
DX: I10 Essential (primary) hypertension (principal); E03.9 Hypothyroidism, unspecified

== ENCOUNTER → 2024-03-07 | Outpatient (CLI) | payer MEDICARE, BC | LOC: M WHC 07:05 | PROVIDERS: ATTEND Family Medicine | DX: Z12.31 Encounter for screening mammogram for malignant neoplasm of breast (principal) ==

== ENCOUNTER → 2024-07-25 | Outpatient (REF) | payer MEDICARE, BC ==
[2024-07-25 18:52] LABS: ALBUMIN 4.3 G/DL (3.2-5.2); ALKALINE PHOSPHATASE 63 U/L (35-104); ALT/SGPT 20 U/L (7.0-40); AST/SGOT 16 U/L (<34); BILIRUBIN,TOTAL 0.6 MG/DL (0.3-1.2); BLOOD UREA NITROGEN 19 MG/DL (9-23); CALCIUM LEVEL 10.9 MG/DL (8.3-10.6); CARBON DIOXIDE LEVEL 28 MMOL/L (20-31); CHLORIDE LEVEL 104 MMOL/L (98-107); CREATININE FOR GFR 0.72 MG/DL (0.55-1.30); FREE T4 1.66 NG/DL (0.89-1.76); GLOMERULAR FILTRATION RATE > 60.0 (>39); GLUCOSE, FASTING 87 MG/DL (74-106); POTASSIUM SERUM 4.5 MMOL/L (3.5-5.1); SODIUM LEVEL 143 MMOL/L (136-145); THYROID STIMULATING HORMONE 0.159 uIU/ML (0.55-4.78); TOTAL PROTEIN 7.6 G/DL (5.7-8.2)
== END ==
LOC: M SFHCCLAY 09:43
PROVIDERS: ATTEND Family Medicine
DX: I10 Essential (primary) hypertension (principal); E03.9 Hypothyroidism, unspecified

== ENCOUNTER → 2025-01-23 | Outpatient (REF) | payer MEDICARE, BC ==
[2025-01-23 13:47] LABS: PLATELET COUNT, AUTOMATED 214 10^3/uL (150-450)
[2025-01-23 14:00] LABS: ALT/SGPT 17.0 U/L (7.0-40); AST/SGOT 18.0 U/L (<34); CALCIUM LEVEL 9.5 MG/DL (8.3-10.6); CARBON DIOXIDE LEVEL 27.0 MMOL/L (20-31); CHLORIDE LEVEL 105.0 MMOL/L (98-107); CHOLESTEROL LEVEL 245.0 MG/DL (<200); CHOLESTEROL RISK RATIO 2.65 (<5); CREATININE FOR GFR 0.86 MG/DL (0.55-1.30); GLOMERULAR FILTRATION RATE 70.4 (>39); LDL CHOLESTEROL 142.7 MG/DL (<100); NON-HDL-C 152.7 MG/DL; POTASSIUM SERUM 4.5 MMOL/L (3.5-5.1); SODIUM LEVEL 145.0 MMOL/L (136-145); TRIGLYCERIDES LEVEL 50.0 MG/DL (<150)
[2025-01-23 14:01] LABS: FREE T4 1.36 NG/DL (0.89-1.76)
== END ==
LOC: M SFHCCLAY 08:43
PROVIDERS: ATTEND Family Medicine
DX: I10 Essential (primary) hypertension (principal); E03.9 Hypothyroidism, unspecified; E78.2 Mixed hyperlipidemia

== ENCOUNTER → 2025-03-13 | Outpatient (CLI) | payer MEDICARE, BC | LOC: M WHC 13:29 | PROVIDERS: ATTEND Family Medicine | DX: Z12.31 Encounter for screening mammogram for malignant neoplasm of breast (principal); R92.313 Mammographic fatty tissue density, bilateral breasts ==